=== PATIENT | female | born 1950 | race Caucasian/White ===

== ENCOUNTER 2016-05-02 20:03 | Observation (INO) ==
[2016-05-02 21:53] LABS: Hematocrit 36.9 % (35.3-44.9); Hemoglobin 11.9 g/dL (11.5-15.4); Lymphocytes # 1.4 K/mcL (0.6-4.6); Mean Corpuscular HGB Conc 32.2 g/dL (31.6-35.5); Mean Corpuscular Hemoglobin 29.2 pg (28.0-33.3); Mean Corpuscular Volume 90.4 fL (83.0-100.0); Mean Platelet Volume 10.7 fL (9.4-12.4); Platelet Count 110 K/mcL (140-400); Red Blood Count 4.08 M/mcL (3.82-4.97); Red Cell Distribution Width 14.8 % (11.5-14.5)
[2016-05-02 21:58] LABS: INR 1.1; Prothrombin Time 11.5 Seconds (9.4-12.1)
[2016-05-02 22:01] LABS: Activated Partial Thrombo Time 37.3 Seconds (26.0-36.0)
[2016-05-02 22:06] LABS: BUN/Creatinine Ratio 14 (6-26); Blood Urea Nitrogen 12 mg/dL (7-20); Calcium 9.4 mg/dL (8.6-10.8); Carbon Dioxide 23 mEq/L (19-29); Chloride 105 mEq/L (98-109); Glucose 155 mg/dL (70-99); Osmolality,Calculated 291 (280-300); Potassium 4.3 mEq/L (3.5-4.5); Sodium 139 mEq/L (136-145); eGFR For African Americans > 60 (> 60); eGFR For Non-African Americans > 60 (> 60)
[2016-05-02 22:13] LABS: Monocytes # 0.5 K/mcL (0.0-1.3); Neutrophils # 2.8 K/mcL (1.6-8.9); Platelet Estimate Slight Decrease (Normal); Reactive Lymphocytes Present (Not Present)
--- NOTE | 2016-05-02 22:28 | Emergency Department Note ---
Disposition Clinical Impression: Angina effort, Abnormal stress test Disposition: Admitted As Inpatient Condition: Good General Adult HPI - General Chief complaint: ED Chest Pain Stated complaint: CP Time Seen by Provider: 05/02/16 22:21 Source: patient - History of Present Illness Pain Scale: 1 - Related Data Allergies Allergy/AdvReac Type Severity Reaction Status Date / Time No Known Allergies Allergy Verified 05/02/16 20:38 Past Medical History - Past Medical History Medical history: Reports: diabetes, hyperlipidemia, hypertension, myocardial infarction - Social History Smoking Status: Never smoker Alcohol use: Reports: none Drug use: Reports: none Physical Exam - General General appearance: alert, in no apparent distress Course Vital Signs Temperature 98.2 F 05/02/16 20:34 Pulse Rate 87 05/02/16 20:34 Respiratory Rate 20 05/02/16 20:34 Blood Pressure 150/78 05/02/16 20:34 O2 Sat by Pulse Oximetry 96 05/02/16 20:34 Temperature 97.4 F L 05/03/16 07:19 Pulse Rate 77 05/03/16 07:19 Respiratory Rate 14 05/03/16 07:19 Blood Pressure 142/78 05/03/16 07:19 O2 Sat by Pulse Oximetry 95 05/03/16 07:19 Oxygen Delivery Oxygen Delivery Room Air Medical Decision Making - Lab Data Result diagrams: 05/03/16 04:00 05/03/16 04:00 Lab Results 05/02/16 05/02/16 05/02/16 Range/Units 21:18 21:18 21:18 WBC 4.7 (4.3-11.1) K/mcL RBC 4.08 (3.82-4.97) M/mcL Hgb 11.9 (11.5-15.4) g/dL Hct 36.9 (35.3-44.9) % MCV 90.4 (83.0-100.0) fL MCH 29.2 (28.0-33.3) pg MCHC 32.2 (31.6-35.5) g/dL RDW 14.8 H (11.5-14.5) % Plt Count 110 L (140-400) K/mcL MPV 10.7 (9.4-12.4) fL Seg Neutrophils % 60.0 % Lymphocytes % 30.0 % Monocytes % 10.0 % Neutrophils # 2.8 (1.6-8.9) K/mcL Lymphocytes # 1.4 (0.6-4.6) K/mcL Monocytes # 0.5 (0.0-1.3) K/mcL Reactive Lymphocytes Present A (Not Present) Platelet Estimate Slight Decrease L (Normal) PT 11.5 (9.4-12.1) Seconds INR 1.1 APTT 37.3 H (26.0-36.0) Seconds Sodium 139 (136-145) mEq/L Potassium 4.3 (3.5-4.5) mEq/L Chloride 105 (98-109) mEq/L Carbon Dioxide 23 (19-29) mEq/L BUN 12 (7-20) mg/dL Creatinine 0.83 (0.57-1.11) mg/dL Est GFR ( Amer) > 60 (> 60) Est GFR (Non-Af Amer) > 60 (> 60) BUN/Creatinine Ratio 14 (6-26) Glucose 155 H (70-99) mg/dL Calculated Osmolality 291 (280-300) Calcium 9.4 (8.6-10.8) mg/dL Troponin I (0-0.03) ng/mL 05/02/16 Range/Units 21:18 WBC (4.3-11.1) K/mcL RBC (3.82-4.97) M/mcL Hgb (11.5-15.4) g/dL Hct (35.3-44.9) % MCV (83.0-100.0) fL MCH (28.0-33.3) pg MCHC (31.6-35.5) g/dL RDW (11.5-14.5) % Plt Count (140-400) K/mcL MPV (9.4-12.4) fL Seg Neutrophils % % Lymphocytes % % Monocytes % % Neutrophils # (1.6-8.9) K/mcL Lymphocytes # (0.6-4.6) K/mcL Monocytes # (0.0-1.3) K/mcL Reactive Lymphocytes (Not Present) Platelet Estimate (Normal) PT (9.4-12.1) Seconds INR APTT (26.0-36.0) Seconds Sodium (136-145) mEq/L Potassium (3.5-4.5) mEq/L Chloride (98-109) mEq/L Carbon Dioxide (19-29) mEq/L BUN (7-20) mg/dL Creatinine (0.57-1.11) mg/dL Est GFR ( Amer) (> 60) Est GFR (Non-Af Amer) (> 60) BUN/Creatinine Ratio (6-26) Glucose (70-99) mg/dL Calculated Osmolality (280-300) Calcium (8.6-10.8) mg/dL Troponin I 0.01 (0-0.03) ng/mL Attestation Statement - Attestation Attestation: I examined this patient and my medical decision-making was reviewed with the PLANNING AIDE/PA/Advanced Practice Nurse/Resident Physician. I agree with the documented findings, disposition and treatment plan as described except to the extent set forth below. Face to face time provided Patient presents at the recommendation of her primary care provider who stated she recently had an abnormal stress test and she should present to the emergency department for further evaluation and treatment. The patient appears in no acute distress. ECG reviewed by me
--- NOTE | 2016-05-02 22:53 | Emergency Department Note ---
Disposition Clinical Impression: Angina effort, Abnormal stress test Disposition: Admitted As Inpatient Condition: Good Referrals: No Florez DO [Primary Care Provider] - Forms: ED Satisfaction Letter Chest Pain HPI - General Chief Complaint: ED Chest Pain Stated Complaint: CP Time Seen by Provider: 05/02/16 22:21 Source: patient Mode of arrival: ambulatory Vital Signs Reviewed: Yes Nursing Notes Reviewed: Yes - History of Present Illness HPI Narrative: Patient is a 66-year-old female with past medical history of diabetes, hypertension, hypercholesterol, former smoker with previous history of remote reported DVT not currently treated with anticoagulation. Patient presents today for evaluation of chest pain and abnormal stress test. Patient has had progressive anginal symptoms over the last 2 months that were worked up as an outpatient with a stress test performed at [facility]. Patient was called today by her primary care physician and told to go to the ER as she had an abnormal stress test involving a moderate amount of her heart acting enough blood flow., Dictating her previous history she has had several episodes of pain in the center of her chest that feels like someone is "punching" her. This significant hard fast pressure last for several seconds and goes away. Patient is not in any current distress and chest pain is currently resolved. Symptoms are reproducible with exertion and associated shortness of breath. No associated nausea or radiation of pain. No fevers no chills no radiation to the back. Severity scale (1-10): 1 - Related Data Allergies Allergy/AdvReac Type Severity Reaction Status Date / Time No Known Allergies Allergy Verified 05/02/16 20:38 All systems ED: reviewed and negative except as stated. Constitutional: Denies: fever, chills Eyes: Denies: eye pain Cardiovascular: Reports: chest pain, palpitations, dyspnea on exertion Respiratory: Denies: cough, dyspnea Gastrointestinal: Denies: abdominal pain, nausea Genitourinary: Denies: urgency Musculoskeletal: Denies: back pain Neurological: Denies: headache Chest Pain PMH - Past Medical History Medical history: Reports: diabetes, hyperlipidemia, hypertension, myocardial infarction - Social History Smoking Status: Never smoker Alcohol use: Reports: none Drug use: Reports: none Physical Exam - General General appearance: alert, in no apparent distress - Head Head exam: atraumatic, normocephalic - Eye Eye exam: Present: normal appearance - ENT ENT exam: normal exam, normal oropharynx - Neck Neck exam: Present: normal inspection, full ROM - Chest Chest inspection: Present: normal inspection, symmetric chest wall rise - Respiratory Respiratory exam: Present: normal lung sounds bilaterally. Absent: respiratory distress, wheezes - Cardiovascular Cardiovascular exam: Present: regular rate, normal rhythm - Abdominal Exam Abdominal exam: Present: soft, Non-Tender - Extremities Exam Extremities exam: Present: normal inspection. Absent: tenderness, pedal edema - Back Exam Back exam: Present: normal inspection. Absent: tenderness - Neurological Exam Neurological exam: Present: alert, oriented X3 - Psychiatric Psychiatric exam: Present: normal affect, normal mood Course Course Narrative: Patient with negative troponin and chest x-ray. EKG abnormal as below. Records being requested. Patient will need admission for further evaluation. - Reevaluation(s) Reevaluation #1: Patient remains chest pain free at this time - Consultations Consultation #1: Discussed with hospitalist, Dr. Aleman, patient accepted for admission. Consultation #2: Discussed with cardiology, Dr. Renteria, no interventions or repeat imaging at this time. Will evaluate in a.m. Vital Signs Temperature 98.2 F 05/02/16 20:34 Pulse Rate 87 05/02/16 20:34 Respiratory Rate 20 05/02/16 20:34 Blood Pressure 150/78 05/02/16 20:34 O2 Sat by Pulse Oximetry 96 05/02/16 20:34 Temperature 98.2 F 05/02/16 20:34 Pulse Rate 87 05/02/16 20:34 Respiratory Rate 20 05/02/16 20:34 Blood Pressure 150/78 05/02/16 20:34 O2 Sat by Pulse Oximetry 96 05/02/16 20:34 Oxygen Delivery Oxygen Delivery Room Air Chest Pain - Lab Data Result diagrams: 05/02/16 21:18 05/02/16 21:18 Lab Results 05/02/16 05/02/16 05/02/16 Range/Units 21:18 21:18 21:18 WBC 4.7 (4.3-11.1) K/mcL RBC 4.08 (3.82-4.97) M/mcL Hgb 11.9 (11.5-15.4) g/dL Hct 36.9 (35.3-44.9) % MCV 90.4 (83.0-100.0) fL MCH 29.2 (28.0-33.3) pg MCHC 32.2 (31.6-35.5) g/dL RDW 14.8 H (11.5-14.5) % Plt Count 110 L (140-400) K/mcL MPV 10.7 (9.4-12.4) fL Seg Neutrophils % 60.0 % Lymphocytes % 30.0 % Monocytes % 10.0 % Neutrophils # 2.8 (1.6-8.9) K/mcL Lymphocytes # 1.4 (0.6-4.6) K/mcL Monocytes # 0.5 (0.0-1.3) K/mcL Reactive Lymphocytes Present A (Not Present) Platelet Estimate Slight Decrease L (Normal) PT 11.5 (9.4-12.1) Seconds INR 1.1 APTT 37.3 H (26.0-36.0) Seconds Sodium 139 (136-145) mEq/L Potassium 4.3 (3.5-4.5) mEq/L Chloride 105 (98-109) mEq/L Carbon Dioxide 23 (19-29) mEq/L BUN 12 (7-20) mg/dL Creatinine 0.83 (0.57-1.11) mg/dL Est GFR ( Amer) > 60 (> 60) Est GFR (Non-Af Amer) > 60 (> 60) BUN/Creatinine Ratio 14 (6-26) Glucose 155 H (70-99) mg/dL Calculated Osmolality 291 (280-300) Calcium 9.4 (8.6-10.8) mg/dL Troponin I (0-0.03) ng/mL 05/02/16 Range/Units 21:18 WBC (4.3-11.1) K/mcL RBC (3.82-4.97) M/mcL Hgb (11.5-15.4) g/dL Hct (35.3-44.9) % MCV (83.0-100.0) fL MCH (28.0-33.3) pg MCHC (31.6-35.5) g/dL RDW (11.5-14.5) % Plt Count (140-400) K/mcL MPV (9.4-12.4) fL Seg Neutrophils % % Lymphocytes % % Monocytes % % Neutrophils # (1.6-8.9) K/mcL Lymphocytes # (0.6-4.6) K/mcL Monocytes # (0.0-1.3) K/mcL Reactive Lymphocytes (Not Present) Platelet Estimate (Normal) PT (9.4-12.1) Seconds INR APTT (26.0-36.0) Seconds Sodium (136-145) mEq/L Potassium (3.5-4.5) mEq/L Chloride (98-109) mEq/L Carbon Dioxide (19-29) mEq/L BUN (7-20) mg/dL Creatinine (0.57-1.11) mg/dL Est GFR ( Amer) (> 60) Est GFR (Non-Af Amer) (> 60) BUN/Creatinine Ratio (6-26) Glucose (70-99) mg/dL Calculated Osmolality (280-300) Calcium (8.6-10.8) mg/dL Troponin I 0.01 (0-0.03) ng/mL
[2016-05-02] MEDS ORDERED: Aspirin 81 MG TAB.CHEW PO ONE (23:27)
[2016-05-02] MEDS ORDERED: 0.9 % Sodium Chloride 1,000 ML IVC SCH (23:45)
[2016-05-02] MEDS ORDERED: Ondansetron 4 MG/2 ML VIAL IVP PRN (23:46)
[2016-05-02] MEDS ORDERED: Acetaminophen 325 MG TABLET PO PRN (23:46)
[2016-05-02] MEDS ORDERED: *HR* Morphine 2 MG/ML SYRINGE IVP PRN (23:46)
[2016-05-02] MEDS ORDERED: Naloxone 0.4 MG/ML INJ IVP PRN (23:46)
--- NOTE | 2016-05-03 00:29 | Internal Med History&Physical ---
Date of Encounter: 05/03/16 Time of Encounter: 23:50 Assessment and Plan (1) Unstable angina Current visit: Yes Status: Acute We will treat a patient with aspirin, nitroglycerin as needed, start low-dose beta chica. Will monitor patient on telemetry. Trend troponin. Check lipid panel. Consult cardiology. Likely the patient will require cardiac catheterization and therefore is at high risk for morbidity and complications given the cardiovascular testing with IV contrast. We will start gentle IV fluid hydration. (2) Diabetes mellitus type 2, noninsulin dependent Current visit: Yes Status: Acute We will start insulin sliding scale. Check hemoglobin A1c. (3) Obstructive sleep apnea Current visit: Yes Status: Acute We will use CPAP. (4) DVT prophylaxis Current visit: Yes Status: Acute Encourage early ambulation. She does not require pharmacological prophylaxis due to poorly ambulatory status and short stay. Internal Medicine - H&P: HPI Chief complaint: Chest pain Admitted From: Emergency Dept Plans for Post Hospital Care: Home History of present illness: Ms. Vincent is a 66 year old female with past medical history significant for hypertension and type 2 diabetes, coronary artery disease status post [place] and obstructive sleep apnea who presented to the hospital as a transfer from [facility] for evaluation of chest pain. Patient reports that she has been having midsternal pressure-like 4/10 pain on and off for the last 3 months usually brought on by walking on flat ground and relieved with rest. She reports associated shortness of breath. 2 days ago he had an episode of severe sharp substernal chest pain that was graded as 10/10 and lasted a few seconds. She had a stress test done 5 days ago and was told that it was positive and directed to the hospital. Currently patient is chest pain-free and asymptomatic. Review of systems: Negative for headaches seizures, negative for depression and anxiety, positive for blurry vision, positive for skin rash secondary to psoriasis, positive for history of a blood clot in the lower remotely, negative for easy bruising and bleeding, positive for joint aches and pains, positive for peripheral neuropathy. the remainder of 10 point review of systems was negative. Family history positive for diabetes mellitus in both parents. Patient's mother also suffered with CVA. Social history the patient is retired, has a sedentary lifestyle. She denies tobacco alcohol and drug use. Past Med Surg Social Fam HX - Past Medical History Medical history: diabetes, hyperlipidemia, hypertension, myocardial infarction - Social History Smoking Status: Never smoker Alcohol use: none Drug use: none - Family History Mother Living Status: Still Living Hx Family Cardiac Disorders: Yes (HTN) Hx Family Endocrine Disorder: Yes (DM) Hx Family Medical Disorders: Yes (TIA) Father Living Status: Age at : 85 Cause of : TIA Hx Family Cardiac Disorders: Yes (HTN) Hx Family Endocrine Disorder: Yes (DM) Internal Medicine - H&P: Meds Allergies No Known Allergies Allergy (Verified 05/02/16 20:38) All Systems PM: A 10-system review of systems was performed and is negative for pertinent findings except as documented above in the HPI. - Constitutional Vitals: Temp Pulse Resp BP Pulse Ox 98.2 F 83 18 115/67 98 05/02/16 20:34 05/02/16 23:44 05/02/16 23:53 05/02/16 23:53 05/02/16 23:44 General appearance: Present: A&O X 3 - Eye Eye exam: Present: PERRL, conjuntiva pink, sclera anicteric Pupils: Present: PERRL - Neck Neck exam general surgery: Present: supple, trachea midline. Absent: lymphadenopathy - Respiratory Respiratory exam: Present: CTAB. Absent: accessory muscle use, rales, rhonchi, wheezes - Cardiovascular Cardiovascular exam: Present: RRR, +S1, +S2, systolic murmur. Absent: diastolic murmur, gallop, rubs - GI/Abdominal GI/Abdominal exam: Present: normal bowel sounds, soft, no peritoneal signs. Absent: distended, tenderness - Extremities Exam Extremities exam: Present: pedal edema, warm, radial pulses palpable and symetrical. Absent: calf tenderness, cyanotic Additional comments: trace pedal edema - Neurological Exam Neurological exam: Present: CN II-XII intact, oriented X3, no focal deficits. Absent: pronater drift, facial droop, speech deficit - Skin Skin exam: Present: dry, intact Internal Med - H&P Results - Labs CBC & Chem 7: 05/02/16 21:18 05/02/16 21:18 - EKG Data EKG comments: 05/03/16 03:02 EKG reveals normal sinus rhythm 84 bpm left axis deviation Q waves in 3 and aVF consistent with old inferior wall W[place] and poor R-wave progression. No acute ST or T-wave changes. The EKG is unchanged when compared to an EKG from 2010. - Impressions Per chart review nuclear stress test performed on 04/27/2016 reveals evidence of moderate size area of mild fixed inferolateral wall defect. Differential include attenuation artifact versus previous non-transmural W[place] versus severe resting ischemia. Echocardiogram performed on 04/27/2016 reveals left ventricle normal size and function. No diastolic dysfunction.
[2016-05-03] MEDS ORDERED: Nitroglycerin 0.4 MG TAB.SUBL SL PRN (03:17)
[2016-05-03] MEDS ORDERED: Dextrose Gel 15 GM PO PRN ×2 (03:19)
[2016-05-03] MEDS ORDERED: D5% in Water 1,000 ML IV PRN (03:19)
[2016-05-03] MEDS ORDERED: *HR* Dextrose 50 % in Water (Syg) 50 ML SYRINGE IVP PRN (03:19)
[2016-05-03 04:42] LABS: Hematocrit 33.4 % (35.3-44.9); Hemoglobin 10.9 g/dL (11.5-15.4); Immature Platelets 4.7 % (1.1-6.1); Mean Corpuscular HGB Conc 32.6 g/dL (31.6-35.5); Mean Corpuscular Hemoglobin 29.5 pg (28.0-33.3); Mean Corpuscular Volume 90.5 fL (83.0-100.0); Mean Platelet Volume 10.7 fL (9.4-12.4); Red Blood Count 3.69 M/mcL (3.82-4.97); Red Cell Distribution Width 14.9 % (11.5-14.5)
[2016-05-03 04:46] LABS: Platelet Count 84 K/mcL (140-400)
[2016-05-03 05:08] LABS: BUN/Creatinine Ratio 21 (6-26); Blood Urea Nitrogen 16 mg/dL (7-20); Calcium 8.9 mg/dL (8.6-10.8); Carbon Dioxide 23 mEq/L (19-29); Chloride 107 mEq/L (98-109); Chol/HDL Ratio 4.7 (0-4.9); Cholesterol 164 mg/dL (< 200); Glucose 124 mg/dL (70-99); HDL Cholesterol 35 mg/dL (40-59); LDL Cholesterol,Calculated 92 mg/dL (0-99); Magnesium 1.9 mg/dL (1.6-2.6); Osmolality,Calculated 293 (280-300); Potassium 4.2 mEq/L (3.5-4.5); Sodium 140 mEq/L (136-145); Triglycerides 185 mg/dL (< 150); eGFR For African Americans > 60 (> 60); eGFR For Non-African Americans > 60 (> 60)
[2016-05-03 05:38] LABS: Eosinophils # 0.1 K/mcL (0.0-0.6); Lymphocytes # 1.1 K/mcL (0.6-4.6); Monocytes # 0.3 K/mcL (0.0-1.3); Neutrophils # 1.8 K/mcL (1.6-8.9); Platelet Estimate Decreased (Normal); Reactive Lymphocytes Present (Not Present); Smudge Cells Present (Not Present)
[2016-05-03 05:40] LABS: Hemoglobin A1C 6.5 %
[2016-05-03] MEDS: Insulin LISPRO 300 UNITS/3 ML VIAL SQ SCH ×2 (05:48→11:09)
[2016-05-03] MEDS ORDERED: Aspirin 81 MG TAB.CHEW PO SCH (09:00)
--- NOTE | 2016-05-03 10:26 | Cardiology Consult Note ---
<Jagjit Dumont R - Last Filed: 05/03/16 11:35> Date of Encounter: 05/03/16 Time of Encounter: 10:20 Assessment and Plan (1) Abnormal stress test Current Visit: Yes Status: Acute Stress test reviewed from [facility] [place] 04/27/16. The report gives conflicting information. The conclusion portion states it shows moderate sized area of mild fixed inferolateral wall defect at rest, likely representing prior MA or artifact, but in details it states rest images had normal uptake and that stress images show mild decreased perfusion in inferolateral segments, which could represent ischemia. Unclear results. Gated EF 81%. Echo reviewed with preserved EF, no significant abnormalities. Given chest pain and abnormal stress test recommend [facility]. R/B/A discussed. Pt agrees. Complicated by thrombocytopenia--platelet count 84 this AM. Will recheck. Was 110 on admission. Pt reports this is an ongoing issue and she follows with GI at [facility] [place]. Reports she has been told it is related to her fatty liver. If PCI needed, will recommend BMS. Risk factors for CAD include HTN, HLD, DM. Reportedly has been told she had a prior MA. Reports having a C >20 years without intervention. Continue ASA and BB. Add statin. (2) Chest pain Current Visit: Yes Status: Acute Troponins negative x 3. In setting of recent abnormal stress test as above. Echo reviewed from [facility] [place] with preserved EF, no significant abnormalities. Recommend [facility] to further evaluate. R/B/A discussed. Pt agrees. Qualifiers: Chest pain type: unspecified Qualified Code(s): R07.9 - Chest pain, unspecified (3) Thrombocytopenia Current Visit: Yes Status: Chronic Pt reports following with GI at [facility] [place]. Reports GI feels it is related to fatty liver and enlarged spleen. Platelet count 110 on admission, 84 this AM. Will recheck. BMS if PCI necessary. Discussion w patient/family: The assessment and plan as outlined above was discussed with the patient and/or family members who expressed understanding and agreement. All questions were answered. Thank you for involving us in the care of your patient. Please call with any questions. I will discuss all the above with Dr. Hickman and make changes as necessary. History of Present Illness Consult date: 05/03/16 Requesting physician: Ace Haq Consult reason: abnormal stress test Chief complaint: chest pain History of present illness: Ms. Vincent is a 66 year old female with PMH of HTN, Type 2 DM, reportedly told in the past she had an MA, LHC >20 years ago without intervention, fatty liver, thrombocytopenia, and obstructive sleep apnea who presented to the hospital after being instructed by her PCP to come in for abnormal stress test. She reports she has had chest pain for a long time, described as intermittent, midsternal, pressure/sharp in nature. There is no radiation. She reports it is with both rest and exertion, but she does notice sometimes it is worsened with exertion. She reports significant dyspnea on exertion. Stress test reviewed from [facility] [place] 04/27/16. The report gives conflicting information. The conclusion portion states it shows moderate sized area of mild fixed inferolateral wall defect at rest, likely representing prior MA or artifact, but in details it states rest images had normal uptake and that stress images show mild decreased perfusion in inferolateral segments, which could represent ischemia. Unclear results. Gated EF 81%. Echo reviewed with preserved EF, no significant abnormalities. Past Med Surg Social Fam HX - Past Medical History Medical history: diabetes, hyperlipidemia, hypertension, liver disease, myocardial infarction Psychiatric history: no psych history - Past Surgical History Surgical History: hysterectomy - Social History Smoking Status: Never smoker Alcohol use: none Drug use: none - Family History Mother Living Status: Still Living Hx Family Cardiac Disorders: Yes (HTN) Hx Family Endocrine Disorder: Yes (DM) Hx Family Medical Disorders: Yes (TIA) Father Living Status: Age at : 85 Cause of : TIA Hx Family Cardiac Disorders: Yes (HTN) Hx Family Endocrine Disorder: Yes (DM) Medications and Allergies Gabapentin [Neurontin] 300 mg PO BID 05/03/16 [History] Lisinopril [Zestril] 5 mg PO DAILY 05/03/16 [History] Metformin [Glucophage] 1,000 mg PO BID 05/03/16 [History] [employer]-3/Dha/Epa/Fish Oil [Fish Oil 1,000 mg Softgel] 1,000 mg PO DAILY 05/03/16 [History] Allergies No Known Allergies Allergy (Verified 05/02/16 20:38) All Systems Review: A 10-system review of systems was performed and is negative for pertinent findings except as documented above in the HPI. - Cardiovascular Cardiovascular: as per HPI, chest pain at rest, chest pain with exertion, dyspnea on exertion - Respiratory Respiratory: dyspnea Physical Examination Vital Signs, Last 4 Hours Temp Pulse Resp BP Pulse Ox 05/03/16 07:19 97.4 F L 77 14 142/78 95 Vital Signs Temp Pulse Resp BP Pulse Ox 05/03/16 07:19 97.4 F L 77 14 142/78 95 05/03/16 03:21 98.1 F 76 16 109/69 96 05/03/16 00:32 97.9 F 78 18 108/72 96 05/02/16 23:53 18 115/67 05/02/16 23:44 83 16 115/67 98 05/02/16 20:34 98.2 F 87 20 150/78 96 Intake and Output 05/02/16 05/03/16 05/03/16 23:59 07:59 15:59 Intake Total 1000 / 1000 Balance 1000 / 1000 Intake: IV Fluids 1000 / 1000 0.9 % Sodium Chloride 1, 1000 / 1000 000 ML @ 75 mls/hr IVC . [id number] JESSI Rx#: [id number] Other: Meal NPO # Voids 1 Weight 99.337 kg Blood Glucose* 124 General: Conversant, No Apparent Distress HEENT: Atraumatic, Normocephaly, Mucus Membranes Moist Neck: No JVD, Normal carotid pulses Cardiac: Reg Rate and Rhythm, Normal S1 and S2, No Murmur Lungs: Normal Breath Sounds, No Wheeze, Rales, Rhonchi Neuro: Alert and responsive, No focal deficits noted Abdomen: Soft, Non-Tender Skin: No rashes noted on visualized skin Musculoskeletal: No Chest Wall Tenderness Extremities: No Clubbing, No Cyanosis, No Edema, Normal Pulses Results 05/03/16 10:56 05/03/16 04:00 Lab Results 05/03/16 05/03/16 05/03/16 04:00 04:00 04:00 WBC 3.3 L Hgb 10.9 L Hct 33.4 L Plt Count 84 L Sodium 140 Potassium 4.2 Chloride 107 Carbon Dioxide 23 BUN 16 Creatinine 0.75 Glucose 124 H Calcium 8.9 Magnesium 1.9 Troponin I 0.00 05/03/16 09:01 WBC Hgb Hct Plt Count Sodium Potassium Chloride Carbon Dioxide BUN Creatinine Glucose Calcium Magnesium Troponin I 0.00 Short CBC 05/03/16 05/02/16 Range/Units 04:00 21:18 WBC 3.3 L 4.7 (4.3-11.1) K/mcL Hgb 10.9 L 11.9 (11.5-15.4) g/dL Hct 33.4 L 36.9 (35.3-44.9) % Plt Count 84 L 110 L (140-400) K/mcL Neutrophils # 1.8 2.8 (1.6-8.9) K/mcL BMP 05/03/16 05/02/16 Range/Units 04:00 21:18 Sodium 140 139 (136-145) mEq/L Potassium 4.2 4.3 (3.5-4.5) mEq/L Chloride 107 105 (98-109) mEq/L Carbon Dioxide 23 23 (19-29) mEq/L BUN 16 12 (7-20) mg/dL Creatinine 0.75 0.83 (0.57-1.11) mg/dL Glucose 124 H 155 H (70-99) mg/dL Calcium 8.9 9.4 (8.6-10.8) mg/dL Cardiac Enzymes 05/03/16 05/03/16 05/02/16 Range/Units 09:01 04:00 21:18 Troponin I 0.00 0.00 0.01 (0-0.03) ng/mL Impressions Chest X-Ray 05/02/16 20:39 IMPRESSION: No evidence of acute cardiopulmonary disease. D/ / Fredi Villar MD / Fredi Villar MD Interpreting Provider: Fredi Villar MD Active Medications Acetaminophen (Tylenol) 650 mg PO Q6HR PRN PRN Reason: Mild Pain (1-3) Stop: 11/01/16 23:47 Aspirin (Aspirin) 81 mg PO DAILY JESSI Stop: 11/02/16 09:01 Last Admin: 05/03/16 08:20 Dose: 81 mg Dextrose/Water (Dextrose 50% (Syg)) 25 ml IVP AD PRN PRN Reason: Hypoglycemia Stop: 11/02/16 03:20 Glucagon (Glucagen) 1 mg IM ONCE PRN PRN Reason: Hypoglycemia Stop: 11/02/16 03:20 Glucose (Gluctose) 15 gm PO ONCE PRN PRN Reason: Hypoglycemia Stop: 11/02/16 03:20 Glucose (Gluctose) 30 gm PO ONCE PRN PRN Reason: Hypoglycemia Stop: 11/02/16 03:20 Sodium Chloride (0.9 % Sodium Chloride) 1,000 mls @ 75 mls/hr IVC .[id number] [facility] Stop: 05/03/16 13:04 Last Infusion: 05/03/16 10:19 Dose: Infused Dextrose (Dextrose 5%) 1,000 mls @ 100 mls/hr IV CONT PRN PRN Reason: HYPOGLYCEMIA Stop: 11/02/16 03:20 Insulin Human Lispro (Humalog) 0 units SQ Q6HR JESSI PRN Reason: Protocol Stop: 11/02/16 06:01 Last Admin: 05/03/16 05:48 Dose: Not Given Metoprolol Tartrate (Lopressor) 12.5 mg PO BID [facility] Stop: 11/02/16 09:01 Last Admin: 05/03/16 08:20 Dose: 12.5 mg Morphine Sulfate (Morphine Sulfate) 2 mg IVP Q4HR PRN PRN Reason: Severe Pain (7-10) Stop: 11/01/16 23:47 Naloxone HCl (Narcan) 0.4 mg IVP Q2MIN PRN PRN Reason: Opioid Reversal Stop: 11/01/16 23:47 Nitroglycerin (Nitroglycerin) 0.4 mg SL Q5MIN PRN PRN Reason: Chest Pain Stop: 11/02/16 03:18 Ondansetron HCl (Zofran) 4 mg IVP Q8HR PRN PRN Reason: Nausea And Vomiting Stop: 11/01/16 23:47 - Imaging and Cardiology Chest Xray: report reviewed Stress Test: report reviewed Echo: report reviewed - EKG Interpretation EKG results cardiology: personally reviewed, other (12 hour tele AVG HR 72, SR, no significant pauses or arrhythmias.) Consult Discharge Plan - Plan Referrals: No Florez DO [Primary Care Provider] - 05/15/16 11:30 am <Ileana Hickman - Last Filed: 05/03/16 15:56> Assessment and Plan Discussion w patient/family: The assessment and plan as outlined above was discussed with the patient and/or family members who expressed understanding and agreement. All questions were answered. Thank you for involving us in the care of your patient. Please call with any questions. History of Present Illness History of present illness: Ms. Vincent is a 66 year old female All Systems Review: A 10-system review of systems was performed and is negative for pertinent findings except as documented above in the HPI. Physical Examination Vital Signs, Last 4 Hours Temp Pulse Resp BP Pulse Ox 05/03/16 15:24 98.6 F 70 14 115/68 96 Results 05/03/16 10:56 05/03/16 04:00 Lab Results 05/03/16 05/03/16 05/03/16 04:00 04:00 04:00 WBC 3.3 L Hgb 10.9 L Hct 33.4 L Plt Count 84 L Sodium 140 Potassium 4.2 Chloride 107 Carbon Dioxide 23 BUN 16 Creatinine 0.75 Glucose 124 H Calcium 8.9 Magnesium 1.9 Troponin I 0.00 05/03/16 05/03/16 09:01 10:56 WBC 2.6 L Hgb 11.1 L Hct 34.5 L Plt Count 73 L Sodium Potassium Chloride Carbon Dioxide BUN Creatinine Glucose Calcium Magnesium Troponin I 0.00 - Attending Attestation I examined this patient and my medical decision-making was reviewed with the FOOD STYLIST/PA/Advanced Practice Nurse/Resident Physician. I agree with the documented findings, disposition and treatment plan as described except to the extent set forth below. Ms. Vincent presented to the hospital by PCP for stress test results. I reviewed the stress test report in detail which is difficult to interpret, suggesting conflicting findings between the Impression and Summary of the report. Unfortunately, I do not believe we can make a plan of care solely based on the stress test report. The patient admits to having intermittent chest pains that are atypical and lack characteristics of ischemia. In addition to this, she has thrombocyotpenia, decreasing from 110 to 73 over the last 24h. I recommended to the patient that she needs further workup before committing her to the risks of a cardiac catheterization. She would like to follow up with Dr. Guo in the office. We will request the stress test images for his personal review. At this time, it is reasonable for the patient to continue aspirin. She is following up with her Workers Compensation Coordinator in 2 weeks. It is also reasonable to start her on a PPI since her symptoms may be suggestive of GERD. She can follow up in the outpatient setting for re-evaluation of symptoms. We will arrange her appointment in [place]. We are signing off. Please call with questions.
[2016-05-03 11:07] LABS: Hematocrit 34.5 % (35.3-44.9); Hemoglobin 11.1 g/dL (11.5-15.4); Mean Corpuscular HGB Conc 32.2 g/dL (31.6-35.5); Mean Corpuscular Hemoglobin 29.6 pg (28.0-33.3); Mean Platelet Volume 10.3 fL (9.4-12.4); Red Blood Count 3.75 M/mcL (3.82-4.97); Red Cell Distribution Width 14.7 % (11.5-14.5)
[2016-05-03 11:11] LABS: Platelet Count 73 K/mcL (140-400)
[2016-05-03 11:27] LABS: Lymphocytes # 0.9 K/mcL (0.6-4.6); Monocytes # 0.4 K/mcL (0.0-1.3); Neutrophils # 1.3 K/mcL (1.6-8.9)
[2016-05-03 11:28] LABS: Anisocytosis 1+ (Not Present); Macrocytosis Present (Not Present); Platelet Estimate Decreased (Normal)
[2016-05-03 15:28] VITALS: BP 115/68
--- NOTE | 2016-05-03 16:12 | Discharge Summary ---
Date of Encounter: 05/03/16 Time of Encounter: 09:00 - Discharge Diagnosis (1) Abnormal stress test Priority: Primary Status: Acute (2) Chest pain Priority: Primary Status: Acute Qualifiers: Chest pain type: unspecified Qualified Code(s): R07.9 - Chest pain, unspecified (3) DVT prophylaxis Priority: Secondary Status: Acute (4) Diabetes mellitus type 2, noninsulin dependent Priority: Secondary Status: Acute (5) Obstructive sleep apnea Priority: Secondary Status: Acute (6) Unstable angina Priority: Primary Status: Acute (7) Thrombocytopenia Priority: Secondary Status: Chronic - Discharge Medications Prescriptions: Nitroglycerin 0.4 mg SL Q5MIN PRN #20 tab.subl PRN Reason: Chest Pain Aspirin 81 mg PO DAILY #30 tab.chew Metoprolol [Lopressor] 12.5 mg PO BID #60 tablet Omeprazole [PriLOSEC] 40 mg PO DAILY@0630 #60 capsule. Home Medications: Aspirin 81 mg PO DAILY #30 tab.chew 05/03/16 [Rx] Atorvastatin [Lipitor] 20 mg PO HS #60 tablet 05/03/16 [Rx] Gabapentin [Neurontin] 300 mg PO BID 05/03/16 [History] Lisinopril [Zestril] 5 mg PO DAILY 05/03/16 [History] Metformin [Glucophage] 1,000 mg PO BID 05/03/16 [History] Metoprolol [Lopressor] 12.5 mg PO BID #60 tablet 05/03/16 [Rx] Nitroglycerin 0.4 mg SL Q5MIN PRN #20 tab.subl 05/03/16 [Rx] [employer]-3/Dha/Epa/Fish Oil [Fish Oil 1,000 mg Softgel] 1,000 mg PO DAILY 05/03/16 [History] Omeprazole [PriLOSEC] 40 mg PO DAILY@0630 #60 capsule. 05/03/16 [Rx] Allergies/Adverse Reactions: Allergies No Known Allergies Allergy (Verified 05/02/16 20:38) Procedures/tests Complete & Pending: Procedures Performed prior 72 hours Category Date Time Status ECG 12 lead ECG [ECG] AM 0600 Y 05/03/16 06:00 Ordered Date of admission: 05/02/16 23:28 Primary care physician: No Florez DO Consults: 05/02/16 23:50 Consult to Physician [CONS] Routine Consulting Provider: Roberto Renteria Reason for Consult: UA Time Notified: 22:00 Call Completed: Yes Discharging clinician: Shavon Mancini Anticipated date of discharge: 05/03/16 - Patient Status Disposition: Home, Self-Care Condition: Good Functional capacity at discharge: independent ambulation Overall status at discharge: patient is back to baseline - Discharge Instructions Follow Up With: No Florez DO [Primary Care Provider] - 05/15/16 11:30 am - Diet and Activity Activity: increase activity as tolerated Diet: diabetic diet Interval History: Ms. Vincent is a 66 year old female with past medical history significant for hypertension and type 2 diabetes, coronary artery disease status post [place] and obstructive sleep apnea who presented to the hospital as a transfer from [facility] for evaluation of chest pain. Patient reports that she has been having midsternal pressure-like 4/10 pain on and off for the last 3 months usually brought on by walking on flat ground and relieved with rest. She reports associated shortness of breath. 2 days ago he had an episode of severe sharp substernal chest pain that was graded as 10/10 and lasted a few seconds. She had a stress test done 5 days ago and was told that it was positive and directed to the hospital. Currently patient is chest pain-free and asymptomatic. Hospital course: Ms. Vincent is a 66 year old female admitted for chest pain and abnormal stress test result. Patient was placed on cardiac monitoring, cardiology consult was called and saw patient. At the beginning cardiology plan for cardiac catheterization, however, it is on hold because of thrombocytopenia. Patient has 3 sets of troponin negative. Will give patient medical treatment with aspirin, beta chica, statin. Patient's chest pains last only several second, also suspected GERD, we will try a PPI treatment for 4 weeks. Patient was discharged home under follow-up with cardiology as outpatient. I saw and examined the patient. She is awake alert oriented 3. No chest pain or SOB. Vital signs stable. Will discharge patient home with aspirin, beta chica, statin, and omeprazole. Patient will follow-up with PCP and cardiology as outpatient. - Time Spent with Patient Total time spent providing and/or coordinating discharge services: 40 minutes Greater than 30 minutes - Constitutional Vitals: Temp Pulse Resp BP Pulse Ox 98.6 F 70 14 115/68 96 05/03/16 15:24 05/03/16 15:24 05/03/16 15:24 05/03/16 15:24 05/03/16 15:24 General appearance: Present: A&O X 3 - Head Head exam: Present: atraumatic, normocephalic - Eye Eye exam: Present: PERRL, conjuntiva pink, sclera anicteric Pupils: Present: PERRL - Neck Neck exam general surgery: Present: supple, trachea midline. Absent: lymphadenopathy - Respiratory Respiratory exam: Present: CTAB. Absent: accessory muscle use, rales, rhonchi, wheezes - Cardiovascular Cardiovascular exam: Present: RRR, +S1, +S2. Absent: diastolic murmur, gallop, rubs, systolic murmur - GI/Abdominal GI/Abdominal exam: Present: normal bowel sounds, soft, no peritoneal signs. Absent: distended, tenderness - Extremities Exam Extremities exam: Present: warm, radial pulses palpable and symetrical. Absent : calf tenderness, cyanotic, pedal edema - Neurological Exam Neurological exam: Present: CN II-XII intact, oriented X3, no focal deficits. Absent: pronater drift, facial droop, speech deficit - Skin Skin exam: Present: dry, intact
--- NOTE | 2016-05-04 19:37 | Electrocardiograph Report ---
[address] [address] Test Date: 2016-05-02 Pat Name: Dina Vincent Department: 102 Room: 3B38 Gender: F Supervisor Grinding: : 1950 Requested By: Ace Rodriguez Order Number: [id number] Reading MD: Aleks Lanza Measurements Intervals [place] Rate: 84 P: 33 RI: 190 QRS: -32 QRSD: 98 T: 30 QT: 372 QTc: 413 Interpretive Statements SINUS RHYTHM MINIMAL VOLTAGE CRITERIA FOR LVH Electronically Signed On 05-04-2016 19:35:52 EST by Aleks Lanza
== END 2016-05-03 16:55 | disposition home or self-care (01) ==
LOC: 3BNU 20:03 → EMEROO 20:03 → SUATTDRO 23:28 → 3BNU 05-03 00:23
PROVIDERS: ADMIT Internal Medicine; ATTEND Internal Medicine

== ENCOUNTER 2018-08-21 18:36 | Observation (INO) ==
--- NOTE | 2018-08-21 20:10 | Emergency Department Note ---
Disposition Clinical Impression: Thrombocytopenia Cirrhosis Qualifiers: Hepatic cirrhosis type: unspecified hepatic cirrhosis Ascites presence: without ascites Qualified Code(s): K74.60 - Unspecified cirrhosis of liver Disposition: Admitted As Inpatient Referrals: Vannessa Villafana DO [Partnered Physician] - Forms: ED Satisfaction Letter Time of Disposition: 21:35 General Adult HPI - General Chief complaint: ED Recheck/Abnormal Lab/Rx Stated complaint: abnormal labs Time Seen by Provider: 08/21/18 19:01 Source: patient Mode of arrival: ambulatory Limitations: no limitations Nursing Notes Reviewed: Yes Vital Signs Reviewed: Yes - History of Present Illness HPI Narrative: 68 yo female with history of cirrhosis presents to the emergency department a fter receiving an abnormal lab result. 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 Patient does not have any symptoms at this time and has not had any recent trauma to her head, neck, abdomen, or extremities. Patient has not noticed any increased bleeding, blood in her urine or stools. She has no complaints at this time. Pain Scale: 0 - Related Data Home Medications Medication Instructions Recorded Confirmed metFORMIN [Glucophage] 1,000 mg PO BID 05/03/16 10/17/16 Lisinopril [Zestril] 10 mg PO DAILY PRN 08/30/16 10/17/16 Previous Rx's Medication Instructions Recorded Aspirin 81 mg PO DAILY #30 tab.chew 05/03/16 Sulfamethoxazole/Trimeth DS 1 each PO BID #20 tablet 10/17/16 [Bactrim DS] Allergies Allergy/AdvReac Type Severity Reaction Status Date / Time No Known Allergies Allergy Verified 10/17/16 14:07 All systems ED: reviewed and negative except as stated. Review of Systems: As Per HPI Constitutional: Denies: fever, chills, weakness Cardiovascular: Denies: chest pain, palpitations, dyspnea on exertion Respiratory: Denies: cough, dyspnea, wheezes Gastrointestinal: Denies: abdominal pain, nausea, vomiting Genitourinary: Denies: dysuria, hematuria Musculoskeletal: Denies: back pain, neck pain Integumentary: Denies: rash Neurological: Denies: headache Endocrine: Reports: fatigue Hematological/Lymphatic: Denies: easy bleeding, easy bruising Past Medical History - Past Medical History Attestation: Yes The following information was validated with the patient. Source: patient Medical history: Reports: diabetes, hyperlipidemia, hypertension, liver disease Surgical history: Reports: angioplasty/stent, hysterectomy Psychiatric history: Reports: no psych history - Social History Smoking Status: Never smoker Smokeless Tobacco Status: No Alcohol use: Reports: none Drug use: Reports: none Physical Exam - General Limitations: no limitations General appearance: alert, in no apparent distress - Head Head exam: atraumatic, normocephalic - Eye Eye exam: Present: normal appearance, PERRL, EOMI - ENT ENT exam: normal exam, normal oropharynx - Neck Neck exam: Present: normal inspection. Absent: tenderness, lymphadenopathy - Chest Chest inspection: Present: normal inspection. Absent: tenderness - Respiratory Respiratory exam: Present: normal lung sounds bilaterally. Absent: wheezes - Cardiovascular Cardiovascular exam: Present: regular rate, normal rhythm - Abdominal Exam Abdominal exam: Present: soft, Non-Tender. Absent: distention, guarding, rebound, rigidity - Extremities Exam Extremities exam: Present: normal inspection. Absent: tenderness, pedal edema - Neurological Exam Neurological exam: Present: alert, oriented X3 - Psychiatric Psychiatric exam: Present: normal affect, normal mood - Skin Skin exam: Present: warm, dry, intact Course Vital Signs Temperature 97.7 F 08/21/18 18:38 Pulse Rate 90 08/21/18 18:38 Respiratory Rate 18 08/21/18 18:38 Blood Pressure 152/77 08/21/18 18:38 O2 Sat by Pulse Oximetry 98 08/21/18 18:38 Temperature 97.7 F 08/21/18 18:38 Pulse Rate 81 08/21/18 21:04 Respiratory Rate 16 08/21/18 21:04 Blood Pressure 117/68 08/21/18 21:04 O2 Sat by Pulse Oximetry 96 08/21/18 21:04 Oxygen Delivery Oxygen Delivery Room Air Medical Decision Making - MDM Narrative Medical decision making narrative: Patient reports with an abnormal outpatient lab, labs will be repeated and we will include type and screen in case the patient needs transfused. 2100 - patient's platelets are 9, all other lab work is at the patient's baseline. We will page hematology for their recommendations on this patient and then disposition is likely admission to hospitalist for further monitoring and other workup. 2129 - spoke with hematology and they suggested giving the patient 1 unit of platelets and admission to the hospital for further monitoring and to be seen by them tomorrow. They say they will also continue to see her as an outpatient. Patient has been accepted by the hospitalist at this time. - Medical Records Medical records reviewed: Yes I reviewed the patient's medical records. - Lab Data Lab results reviewed: Yes I reviewed the patient's lab results. Result diagrams: 08/21/18 19:02 08/21/18 19:02 Lab Results 08/21/18 08/21/18 08/21/18 Range/Units 19:02 19:02 19:54 WBC 3.0 L (4.3-11.1) K/mcL RBC 3.78 L (3.82-4.97) M/mcL Hgb 10.7 L (11.5-15.4) g/dL Hct 33.8 L (35.3-44.9) % MCV 89.4 (83.0-100.0) fL MCH 28.3 (28.0-33.3) pg MCHC 31.7 (31.6-35.5) g/dL RDW 15.9 H (11.5-14.5) % Plt Count 9 L* (140-400) K/mcL MPV TNP Seg Neutrophils % 60.0 % Band Neutrophils % 6.0 H (0-4) % Lymphocytes % 20.0 % Monocytes % 14.0 % Neutrophils # 2.0 (1.6-8.9) K/mcL Lymphocytes # 0.6 (0.6-4.6) K/mcL Monocytes # 0.4 (0.0-1.3) K/mcL Platelet Estimate Marked Decrease L (Normal) Immature Plt Fraction 19.2 H (1.1-6.1) % Sodium 139 (136-145) mEq/L Potassium 4.0 (3.5-5.1) mEq/L Chloride 106 (98-107) mEq/L Carbon Dioxide 27 (23-29) mEq/L BUN 14 (8-23) mg/dL Creatinine 0.78 (0.60-1.20) mg/dL Est GFR ( Amer) > 60 (> 60) Est GFR (Non-Af Amer) > 60 (> 60) BUN/Creatinine Ratio 18 (6-26) Glucose 196 H (70-105) mg/dL Calculated Osmolality 294 (280-300) Calcium 9.3 (8.6-10.3) mg/dL Blood Type O POSITIVE Attestation Statement - Attestation Attestation: I, Prabhakar Carrion DO, examined this patient [id number] and my medical decision-making was reviewed with Laura Herrera DO, Resident Physician. I agree with the documented findings, disposition and treatment plan as described except to the extent set forth below. I personally supervised and was present for the espinal/critical portions of the procedures completed by the resident documented below. Please see my progress notes for details.
[2018-08-21 20:25] LABS: Hematocrit 33.8 % (35.3-44.9); Hemoglobin 10.7 g/dL (11.5-15.4); Immature Platelets 19.2 % (1.1-6.1); Mean Corpuscular HGB Conc 31.7 g/dL (31.6-35.5); Mean Corpuscular Hemoglobin 28.3 pg (28.0-33.3); Mean Corpuscular Volume 89.4 fL (83.0-100.0); Red Blood Count 3.78 M/mcL (3.82-4.97); Red Cell Distribution Width 15.9 % (11.5-14.5)
[2018-08-21 20:30] LABS: BUN/Creatinine Ratio 18 (6-26); Blood Urea Nitrogen 14 mg/dL (8-23); Calcium 9.3 mg/dL (8.6-10.3); Carbon Dioxide 27 mEq/L (23-29); Chloride 106 mEq/L (98-107); Glucose 196 mg/dL (70-105); Osmolality,Calculated 294 (280-300); Sodium 139 mEq/L (136-145); eGFR For African Americans > 60 (> 60); eGFR For Non-African Americans > 60 (> 60)
[2018-08-21 20:32] LABS: Platelet Count 9 K/mcL (140-400)
--- NOTE | 2018-08-21 20:41 | Emergency Department Note ---
Disposition Clinical Impression: Thrombocytopenia Cirrhosis Qualifiers: Hepatic cirrhosis type: unspecified hepatic cirrhosis Ascites presence: without ascites Qualified Code(s): K74.60 - Unspecified cirrhosis of liver Disposition: Admitted As Inpatient Time of Disposition: 21:00 General Adult HPI - General Chief complaint: ED Recheck/Abnormal Lab/Rx Stated complaint: abnormal labs Time Seen by Provider: 08/21/18 19:01 Source: patient Mode of arrival: ambulatory Limitations: no limitations - History of Present Illness Pain Scale: 0 - Related Data Home Medications Medication Instructions Recorded Confirmed metFORMIN [Glucophage] 1,000 mg PO BID 05/03/16 08/21/18 Lisinopril [Zestril] 10 mg PO DAILY PRN 08/30/16 08/21/18 Previous Rx's Medication Instructions Recorded Aspirin 81 mg PO DAILY #30 tab.chew 05/03/16 Sulfamethoxazole/Trimeth DS 1 each PO BID #20 tablet 10/17/16 [Bactrim DS] Allergies Allergy/AdvReac Type Severity Reaction Status Date / Time No Known Allergies Allergy Verified 10/17/16 14:07 Constitutional: Denies: fever, chills, weakness Cardiovascular: Denies: chest pain, palpitations, dyspnea on exertion Respiratory: Denies: cough, dyspnea, wheezes Gastrointestinal: Denies: abdominal pain, nausea, vomiting Genitourinary: Denies: dysuria, hematuria Musculoskeletal: Denies: back pain, neck pain Integumentary: Denies: rash Neurological: Denies: headache Endocrine: Reports: fatigue Hematological/Lymphatic: Denies: easy bleeding, easy bruising Past Medical History - Past Medical History Medical history: Reports: diabetes, hyperlipidemia, hypertension, liver disease Surgical history: Reports: angioplasty/stent, hysterectomy Psychiatric history: Reports: no psych history - Social History Smoking Status: Never smoker Smokeless Tobacco Status: No Alcohol use: Reports: none Drug use: Reports: none Physical Exam - General Limitations: no limitations General appearance: alert, in no apparent distress Course Vital Signs Temperature 97.7 F 08/21/18 18:38 Pulse Rate 90 08/21/18 18:38 Respiratory Rate 18 08/21/18 18:38 Blood Pressure 152/77 08/21/18 18:38 O2 Sat by Pulse Oximetry 98 08/21/18 18:38 Temperature 98.2 F 08/22/18 08:37 Pulse Rate 76 08/22/18 08:37 Respiratory Rate 16 08/22/18 08:37 Blood Pressure 146/76 08/22/18 08:37 O2 Sat by Pulse Oximetry 96 08/22/18 08:37 Oxygen Delivery Oxygen Delivery Room Air Medical Decision Making - Lab Data Result diagrams: 08/22/18 05:20 08/22/18 05:20 Lab Results 08/21/18 08/21/18 08/21/18 Range/Units 19:02 19:02 19:54 WBC 3.0 L (4.3-11.1) K/mcL RBC 3.78 L (3.82-4.97) M/mcL Hgb 10.7 L (11.5-15.4) g/dL Hct 33.8 L (35.3-44.9) % MCV 89.4 (83.0-100.0) fL MCH 28.3 (28.0-33.3) pg MCHC 31.7 (31.6-35.5) g/dL RDW 15.9 H (11.5-14.5) % Plt Count 9 L* (140-400) K/mcL MPV TNP Seg Neutrophils % 60.0 % Band Neutrophils % 6.0 H (0-4) % Lymphocytes % 20.0 % Monocytes % 14.0 % Neutrophils # 2.0 (1.6-8.9) K/mcL Lymphocytes # 0.6 (0.6-4.6) K/mcL Monocytes # 0.4 (0.0-1.3) K/mcL Platelet Estimate Marked Decrease L (Normal) Immature Plt Fraction 19.2 H (1.1-6.1) % Sodium 139 (136-145) mEq/L Potassium 4.0 (3.5-5.1) mEq/L Chloride 106 (98-107) mEq/L Carbon Dioxide 27 (23-29) mEq/L BUN 14 (8-23) mg/dL Creatinine 0.78 (0.60-1.20) mg/dL Est GFR ( Amer) > 60 (> 60) Est GFR (Non-Af Amer) > 60 (> 60) BUN/Creatinine Ratio 18 (6-26) Glucose 196 H (70-105) mg/dL Calculated Osmolality 294 (280-300) Calcium 9.3 (8.6-10.3) mg/dL Blood Type O POSITIVE Antibody Screen NEGATIVE Attestation Statement - Attestation Attestation: I, Prabhakar Carrion DO, examined this patient [id number] and my medical decision-making was reviewed with Laura Herrera DO, Resident Physician. I ag ree with the documented findings, disposition and treatment plan as described except to the extent set forth below. I personally supervised and was present for the espinal/critical portions of the procedures completed by the resident documented below. Please see my progress notes for details. 68-year-old female presents emergency room with lab abnormality. Patient was seen and evaluated by her primary care provider. Check blood counts drawn at that time that showed a platelet count of 8. Patient denies any chest pain or shortness of breath. She has not had any nausea vomiting or diarrhea. No fevers no chills. She has not fallen or injured herself. She has no rashes lesions of petechial-like presentation this time. Patient is otherwise resting comfortably in the bed in no specific distress. Vital signs been reviewed and are stable. Patient will repeat labs drawn here type and screen collected. If the patient's platelet count is at low will discuss with hematology recommendations for possible platelet transfusion. Patient is otherwise in no distress. Lungs are clear. Heart is regular. Abdomen is soft. No guarding no rigidity no peritoneal symptoms noted at this time. Patient is otherwise clinically stable. See detailed documentation of the physical exam, medical intervention, medical decision-making disposition the resident physician's note. No critical care applied the patient's treatment course. EKGs were reviewed by myself documented by the resident physician if pertinent. Manager Medical Device on-call as well as the hospitals for admission. Patient will be transfused 1 unit of platelets and admitted for further management and evaluation. Patient is otherwise stable. Be monitored here in the emergency department until the admission process is completed.
[2018-08-21 20:58] LABS: Lymphocytes # 0.6 K/mcL (0.6-4.6); Monocytes # 0.4 K/mcL (0.0-1.3); Platelet Estimate Marked Decrease (Normal)
[2018-08-21] MEDS ORDERED: 0.9 % Sodium Chloride 250 ML ONE (22:32)
[2018-08-22] MEDS ORDERED: *HR* Dextrose 50 % in Water (Syg) 50 ML SYRINGE IVP PRN (00:17)
[2018-08-22] MEDS ORDERED: Dextrose Gel 15 GM/37.5 ML TUBE PO PRN ×2 (00:17)
[2018-08-22] MEDS ORDERED: D5% in Water 1,000 ML IVC PRN (00:17)
[2018-08-22] MEDS ORDERED: MOM Conc 10 ML UD.LIQ PO PRN (00:18)
[2018-08-22] MEDS ORDERED: Naloxone 0.4 MG/ML INJ IVP PRN (00:18)
[2018-08-22] MEDS ORDERED: Ondansetron 4 MG/2 ML VIAL IVP PRN (00:18)
[2018-08-22] MEDS: Insulin LISPRO 300 UNITS/3 ML VIAL SQ SCH ×5 (00:47→20:48)
--- NOTE | 2018-08-22 01:06 | Internal Med History&Physical ---
Date of Encounter: 08/21/18 Time of Encounter: 23:30 Internal Medicine - H&P: HPI Chief complaint: Abnormal Labs/Low Platelets Admitted From: Emergency Dept Plans for Post Hospital Care: Home History of present illness: Ms. Vincent is a 68 year old female w/PMH of diabetes controlled with Metformin, HLD, HTN, hx of heart murmur, and chronic liver disease presents from the ED d/t her PCP sending her here for a low platelet count of 8,000. 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 Patient also reports left upper quadrant discomfort. There is some edema w/mild palpation which is d/t possible splenomegaly. Pt. reports taking both doses of her Metformin on 08/21/18, so CT of the abdomen contraindicated for 24 hours d/t risk for renal damage. Pt. also reports constipation, neuralgia in LEs, unsteadiness on her feet, dizziness, and shortness of breath. Patient denies recent illness, fever, chills, nausea, vomiting, headache, changes in vision, unusual bleeding, chest pain, cough, chest congestion, diarrhea, numbness, tingling, pre-syncope, or syncope. Past Med Surg Social Fam HX - Past Medical History Source: patient, old records reviewed Medical history: cirrhosis (Non-alcoholic), diabetes, hyperlipidemia, hypertension, liver disease Additional medical history: sleep apnea Psychiatric history: no psych history - Past Surgical History Surgical History: angioplasty/stent ([facility] x2 - No stents), hysterectomy (Total) Additional surgical history: tubal ligation - Social History Smoking Status: Former smoker Packs per day: 1 PPD - Reports quitting 30 years ago Smokeless Tobacco Status: No Alcohol use: none Drug use: none Current living situation: Home Activity Level: Independent ambulation Recent Out of Country Travel Within the Last 8 Weeks: No Exposure or Possible Exposure to Illness During Travel: No - Family History Mother Race: Family Member Ethnicity: Non- Living Status: Still Living Hx Family Cardiac Disorders: Yes (HTN, CVA) Hx Family Endocrine Disorder: Yes (DM) Hx Family Neurologic Disorders: Yes (CVA) Father Race: Family Member Ethnicity: Non- Living Status: Age at : 85 Cause of : CVA Hx Family Cardiac Disorders: Yes (HTN, CVA) Hx Family Endocrine Disorder: Yes (DM) Brother Race: Family Member Ethnicity: Non- Living Status: Still Living Hx Family Endocrine Disorder: Yes (Fatty liver) Hx Family Musculoskeletal Disorders: Yes (Arthritis) Sister Race: Family Member Ethnicity: Non- Living Status: Still Living Hx Family Cardiac Disorders: Yes (CVA) Hx Family Endocrine Disorder: Yes (Fatty liver, DM) Hx Family Neurologic Disorders: Yes (CVA) Internal Medicine - H&P: Meds Aspirin 81 mg PO DAILY #30 tab.chew 05/03/16 [Rx] metFORMIN [Glucophage] 1,000 mg PO BID 05/03/16 [History] Lisinopril [Zestril] 10 mg PO DAILY PRN 08/30/16 [History] Sulfamethoxazole/Trimeth DS [Bactrim DS] 1 each PO BID #20 tablet 10/17/16 [Rx] Allergy/AdvReac Type Severity Reaction Status Date / Time No Known Allergies Allergy Verified 10/17/16 14:07 All Systems PM: A 10-system review of systems was performed and is negative for pertinent findings except as documented above in the HPI. - Constitutional Constitutional: as per HPI, no chills, no fever(s), no night sweats - EENT Eyes: no change in vision, no discharge, no pain, no photophobia Ears: no ear discharge, no ear pain, no tinnitus Nose, mouth and throat: no dysphagia, no nasal discharge, no neck pain, no sore throat - Breasts Breasts: as per HPI - Cardiovascular Cardiovascular ROS IM: dyspnea, dyspnea on exertion, lightheadedness, no chest pain, no diaphoresis, no palpitations, no syncope - Respiratory Respiratory: as per HPI, dyspnea, dyspnea on exertion, no cough, no wheezing, no excessive phlegm production - Gastrointestinal Gastrointestinal: as per HPI, abdominal pain (LUQ), constipation, no diarrhea, no hematemesis, no hematochezia, no melena, no nausea, no vomiting - Genitourinary Genitourinary: no change in urinary stream, no dysuria, no flank pain, no hematuria Menstruation: as per HPI, post hysterectomy (Total) - Musculoskeletal Musculoskeletal ROS IM: as per HPI, no numbness, no tingling - Integumentary Integumentary IM: no rash, no unusual bruising - Neurological Neurological ROS: as per HPI, dizziness, other (Neuralgia in LEs), no confusion, no convulsions, no focal weakness, no numbness, no tingling, no tremor(s) - Psychiatric Psychiatric: as per HPI - Endocrine Endocrine IM: as per HPI - Hematologic/Lymphatic Hematologic/Lymphatic: no easy bruising - Allergic/Immunologic Allergic/Immunologic: as per HPI - Constitutional Vitals: Temp Pulse Resp BP Pulse Ox 98.1 F 75 16 130/75 97 08/22/18 00:13 08/22/18 00:13 08/22/18 00:13 08/22/18 00:08/22/18 00:13 General appearance: Present: cooperative, A&O X 3, pleasant, no acute distress, obese, answers questions appropriately Exam: Patient examined at bedside. Patient resting in bed and reports mild shortness of breath and unsteadiness on her feet. Patient also reports left upper quadrant discomfort. There is some edema present with mild palpation to left upper quadrant which may be indicative of splenomegaly. Patient is a diabetic who takes metformin with last dose on 08/21. CT of the abdomen and pelvis with contrast should be ordered on 08/22 in order to assess hepatomegaly from current autoimmune cirrhosis as well as splenomegaly. Patient denies any other symptoms or complaints on exam. VS: 98.2F temp, HR 71, RR 16, BP 135/79, SPO2 95% on room air. - Head Head exam: Present: atraumatic, normocephalic - Eye Eye exam: Present: PERRL, conjuntiva pink, sclera anicteric Pupils: Present: PERRL - ENT ENT exam: Present: normal exam - Neck Neck exam general surgery: Present: normal inspection, supple, trachea midline. Absent: lymphadenopathy - Respiratory Respiratory exam: Present: CTAB. Absent: accessory muscle use, rales, rhonchi, wheezes - Cardiovascular Cardiovascular exam: Present: RRR, +S1, +S2. Absent: diastolic murmur, gallop, rubs, systolic murmur - GI/Abdominal GI/Abdominal exam: Present: normal bowel sounds, soft, no peritoneal signs. Absent: distended, tenderness - Rectal Rectal exam: Present: deferred - Additional comments: exam deferred. - Extremities Exam Extremities exam: Present: warm, radial pulses palpable and symmetrical. Absent: calf tenderness, cyanotic, pedal edema - Back Exam Back exam: Present: normal inspection - Neurological Exam Neurological exam: Present: alert, CN II-XII intact, oriented X3, no focal deficits. Absent: pronater drift, facial droop, speech deficit - Psychiatric Psychiatric exam: Present: normal affect, normal mood - Skin Skin exam: Present: dry, intact Internal Med - H&P Results - Labs CBC & Chem 7: 08/21/18 19:02 08/21/18 19:02 Labs: Short CBC 08/21/18 Range/Units 19:02 WBC 3.0 L (4.3-11.1) K/mcL Hgb 10.7 L (11.5-15.4) g/dL Hct 33.8 L (35.3-44.9) % Plt Count 9 L* (140-400) K/mcL Neutrophils # 2.0 (1.6-8.9) K/mcL BMP 08/21/18 19:02 Sodium 139 Potassium 4.0 Chloride 106 Carbon Dioxide 27 BUN 14 Creatinine 0.78 Glucose 196 H Calcium 9.3 - Assessment and Plan (1) Pancytopenia Current Visit: Yes Status: Acute Assessment and plan: Acute pancytopenia w/WBC of 3.0, RBC of 3.78, and platelets of 9. Pt. has chronic history of autoimmune cirrhosis and hx of thrombocytopenia and pancytopenia. Pt. sent to the ED today d/t platelets of 9. Transfusion of 1 unit of platelets ordered. Falls/safety precautions and up with assist ordered and discussed w/pt. d/t high risk for bleeding from falls. Pt. expresses understanding and agreement to plan. Pt. reports LUQ discomfort on exam w/mild palpation. Concern for possible splenomegaly d/t current thrombocytopenia. Pt. takes Metformin BID w/last dose on 08/21/18. CT of the abdomen/pelvis w/contrast should be done to assess for hepatomegaly and splenomegaly d/t hx, but will madhuri t 24 hours to avoid kidney damage. SCDs on bilateral LEs for DVT prophylaxis d/t current platelets. Pt. is high risk for further morbidity and complications d/t current pancytopenia, hx of autoimmune cirrhosis, current risk for falls/bleeding from dizziness and thrombocytopenia, suspected splenomegaly, risk factors, and obesity. Observation. (2) Cirrhosis Current Visit: Yes Status: Chronic Assessment and plan: Hx of chronic autoimmune non-alcoholic cirrhosis. Current pancytopenia. Hepatic panel in a.m. labs. Avoid hepatotoxins. Qualifiers: Hepatic cirrhosis type: unspecified hepatic cirrhosis Ascites presence: without ascites Qualified Code(s): K74.60 - Unspecified cirrhosis of liver (3) HLD (hyperlipidemia) Current Visit: Yes Status: Chronic Assessment and plan: Hx of chronic HLD. Pt. not currently on statin. Lipid panel in a.m. labs. Consider adding statin to home medications on discharge if warranted by lipid panel results. Qualifiers: Hyperlipidemia type: pure hypercholesterolemia Qualified Code(s): E78.00 - Pure hypercholesterolemia, unspecified; E78.0 - Pure hypercholesterolemia (4) HTN (hypertension) Current Visit: Yes Status: Chronic Assessment and plan: Hx of chronic HTN. Monitor pt. and VS. Continue pts. Lisinopril. Qualifiers: Hypertension type: essential hypertension Qualified Code(s): I10 - Essential (primary) hypertension (5) Diabetes mellitus type 2, noninsulin dependent Current Visit: Yes Status: Chronic Assessment and plan: Hx of chronic diabetes controlled by metformin. Last two doses were on 08/21/18. Will hold patient's metformin d/t possibility of CT imaging w/contrast and administer low-dose correction sliding scale insulin and hypoglycemic protocol. BG checks before meals at bedtime. A1c in a.m. labs. (6) Neuropathy Current Visit: Yes Status: Chronic Assessment and plan: Hx of chronic neuropathy and spasms in LEs. Pt. reports she does not currently take Gabapentin for this. Will monitor and add Zanaflex if needed. (7) DVT prophylaxis Current Visit: Yes Status: Acute Assessment and plan: Bilateral SCDs on LEs for DVT prophylaxis due to current pancytopenia. - Time Spent With Patient Total time spent is greater than 50% in coordination of care (as documented) at patient's floor/unit and/or counseling patient:
[2018-08-22 05:59] LABS: Mean Corpuscular HGB Conc 31.7 g/dL (31.6-35.5); White Blood Count 2.1 K/mcL (4.3-11.1)
[2018-08-22 06:01] LABS: Hematocrit 30.3 % (35.3-44.9); Hemoglobin 9.6 g/dL (11.5-15.4); Immature Platelets 12.4 % (1.1-6.1); Mean Corpuscular Hemoglobin 28.2 pg (28.0-33.3); Mean Corpuscular Volume 88.9 fL (83.0-100.0); Red Blood Count 3.41 M/mcL (3.82-4.97); Red Cell Distribution Width 15.6 % (11.5-14.5)
[2018-08-22 06:04] LABS: Platelet Count 11 K/mcL (140-400)
[2018-08-22 06:06] LABS: INR 1.1; Prothrombin Time 12.8 Seconds (9.4-12.1)
[2018-08-22 06:09] LABS: Activated Partial Thrombo Time 36.5 Seconds (26.0-36.0)
[2018-08-22 06:18] LABS: Albumin/Globulin Ratio 1.8 (1.1-2.2); Bilirubin,Direct 0.1 mg/dL (0.0-0.2); Bilirubin,Indirect 0.3 mg/dL (0.0-1.2); Bilirubin,Total 0.4 mg/dL (0.3-1.0); Globulin 2.2 g/dL (2.4-3.5); Total Protein 6.2 g/dL (6.4-8.9)
[2018-08-22 06:20] LABS: BUN/Creatinine Ratio 20 (6-26); Blood Urea Nitrogen 13 mg/dL (8-23); Calcium 9.1 mg/dL (8.6-10.3); Carbon Dioxide 24 mEq/L (23-29); Chloride 106 mEq/L (98-107); Chol/HDL Ratio 4.4 (0-4.9); Cholesterol 173 mg/dL (< 200); Glucose 152 mg/dL (70-105); HDL Cholesterol 39 mg/dL (40-59); LDL Cholesterol,Calculated 108 mg/dL (0-99); Magnesium 1.9 mg/dL (1.6-2.6); Osmolality,Calculated 293 (280-300); Potassium 4.1 mEq/L (3.5-5.1); Sodium 140 mEq/L (136-145); Triglycerides 130 mg/dL (< 150); eGFR For African Americans > 60 (> 60); eGFR For Non-African Americans > 60 (> 60)
[2018-08-22] MEDS ORDERED: 0.9 % Sodium Chloride 250 ML ONE (06:30)
[2018-08-22 09:08] LABS: Estimated Average Glucose 148 mg/dl; Hemoglobin A1C 6.8 %
--- NOTE | 2018-08-22 11:27 | Event Note ---
Date of Encounter: 08/22/18 Time of Encounter: 11:27 Patient was seen and examined earlier this morning by hospitalist services. Currently patient denies any pain or discomfort. She has received 3 units of platelets initially presented with platelet count of 8000 we will repeat platelet count. No signs or symptoms of active bleeding. Appears neurologically intact at this time. She does complain of some left upper quadrant plane and she is tender to palpation. No ascites noted. Did review the case with GI we will see patient up on consult. We will obtain CT of abdomen. LFTs are stable at this time. He will has been consulted and appreciate recommendations. Review treatment plan with the patient who verbalized understanding.
--- NOTE | 2018-08-22 13:55 | Electrocardiograph Report ---
[address] [place] [address] Test Date: 2018-08-21 Pat Name: Dina Vincent Department: [id number] Room: 3B66 Gender: F [employer]: : 1950 Requested By: Sandro Gonzalez Order Number: [id number] Reading MD: Ileana Hickman Measurements Intervals [place] Rate: 85 P: 26 KS: 186 QRS: -42 QRSD: 96 T: 43 QT: 399 QTc: 475 Interpretive Statements Sinus rhythm Probable left atrial enlargement Left axis deviation Low voltage, precordial leads Electronically Signed On 08-22-2018 13:53:35 EDT by Ileana Hickman
[2018-08-22 14:36] LABS: Eosinophils % 1.2 %; Hematocrit 30.3 % (35.3-44.9); Hemoglobin 9.5 g/dL (11.5-15.4); Immature Granulocytes % 6.4 % (0-4); Lymphocytes # 0.5 K/mcL (0.6-4.6); Lymphocytes % 28.3 %; Mean Corpuscular HGB Conc 31.4 g/dL (31.6-35.5); Mean Corpuscular Hemoglobin 28.5 pg (28.0-33.3); Monocytes # 0.4 K/mcL (0.0-1.3); Monocytes % 24.3 %; Neutrophils # 0.7 K/mcL (1.6-8.9); Red Blood Count 3.33 M/mcL (3.82-4.97); Red Cell Distribution Width 15.7 % (11.5-14.5); Segmented Neutrophils % 39.8 %; White Blood Count 1.7 K/mcL (4.3-11.1)
[2018-08-22 14:42] LABS: Platelet Count 30 K/mcL (140-400)
[2018-08-22 15:05] LABS: Platelet Estimate Marked Decrease (Normal)
[2018-08-22 15:06] LABS: Anisocytosis 1+ (Not Present)
--- NOTE | 2018-08-22 15:19 | Oncology Inp Consult Note ---
<Norma oRdas - Last Filed: 08/22/18 15:50> Date of Encounter: 08/22/18 Time of Encounter: 15:16 Assessment and Plan (1) Thrombocytopenia Status: Chronic Assessment and plan: Thrombocytopenia in the presence of cirrhosis Plt 9 in ED. 3 units platelets transfused. Repeat Plt 30. If Plt>20, ok to discharge home from Hem/Onc perspective. Patient to follow up with Dr. Kong at [facility] in 2 weeks. Appointment will need scheduled. If active bleeding noted or concerns, patient will need to call cancer center and discuss with Dr. Kong's team, after discharge. - Data of Consult Patient: new to practice Requesting Physician: Briseida Gonzalez MD Primary Care Provider: Darlene Leslie - Consult Narrative Reason for consult: thrombocytopenia History of present illness: Dina, a 68yo female with known history of non-alcoholic cirrhosis, presented to the ED from her PCP due to platelet count of 9000. Dr. Bauman has been managing her cirrhosis. Patient received 1 unit of platelets on 08/21/18 and is planned to received 2 units of platelets today. She denies active bleeding. Medical history: cirrhosis, DM, HTN, HLD Review of systems: + dizziness, unsteady + shortness of breath + constipation Denies fever or chills. Denies nausea, vomiting, diarrhea, or abdominal pain. Denies headache or vision changes. Denies bleeding. Past Med Surg Social Fam HX - Past Medical History Medical history: cirrhosis (Non-alcoholic), diabetes, hyperlipidemia, hypertension, liver disease Additional medical history: sleep apnea Psychiatric history: no psych history - Past Surgical History Surgical History: angioplasty/stent ([facility] x2 - No stents), hysterectomy (Total) Additional surgical history: tubal ligation - Social History Smoking Status: Former smoker Packs per day: 1 PPD - Reports quitting 30 years ago Smokeless Tobacco Status: No Alcohol use: none Drug use: none - Family History Mother Race: Family Member Ethnicity: Non- Living Status: Still Living Hx Family Cardiac Disorders: Yes (HTN, CVA) Hx Family Endocrine Disorder: Yes (DM) Hx Family Neurologic Disorders: Yes (CVA) Father Race: Family Member Ethnicity: Non- Living Status: Age at : 85 Cause of : CVA Hx Family Cardiac Disorders: Yes (HTN, CVA) Hx Family Endocrine Disorder: Yes (DM) Brother Race: Family Member Ethnicity: Non- Living Status: Still Living Hx Family Endocrine Disorder: Yes (Fatty liver) Hx Family Musculoskeletal Disorders: Yes (Arthritis) Sister Race: Family Member Ethnicity: Non- Living Status: Still Living Hx Family Cardiac Disorders: Yes (CVA) Hx Family Endocrine Disorder: Yes (Fatty liver, DM) Hx Family Neurologic Disorders: Yes (CVA) Medications and Allergies metFORMIN [Glucophage] 1,000 mg PO DAILY PRN 05/03/16 [History] Lisinopril [Zestril] 10 mg PO DAILY 08/30/16 [History] Aspirin [Adult Aspirin Regimen] 81 mg PO DAILY 08/22/18 [History] Betamethasone/Propylene Glyc [Betamethasone Dp Aug 0.05% Lot] 1 appl TP 2XW PRN 08/22/18 [History] Nitrofurantoin Monohyd/M-Cryst [Macrobid 100 mg Capsule] 100 mg PO Q12H 08/22/18 [History] Non-Formulary Medication 1 appl TP 3XW PRN 08/22/18 [History] Allergy/AdvReac Type Severity Reaction Status Date / Time No Known Allergies Allergy Verified 08/22/18 12:04 Oncology Inpatient Results Labs: Laboratory Results - last 24 hr 08/21/18 08/21/18 08/21/18 19:02 19:02 19:54 WBC 3.0 L RBC 3.78 L Hgb 10.7 L Hct 33.8 L MCV 89.4 MCH 28.3 MCHC 31.7 RDW 15.9 H Plt Count 9 L* MPV TNP Immature Gran % Seg Neutrophils % 60.0 Band Neutrophils % 6.0 H Lymphocytes % 20.0 Monocytes % 14.0 Eosinophils % Basophils % Neutrophils # 2.0 Lymphocytes # 0.6 Monocytes # 0.4 Eosinophils # Basophils # Platelet Estimate Marked Decrease L Immature Plt Fraction 19.2 H Anisocytosis PT INR APTT Sodium 139 Potassium 4.0 Chloride 106 Carbon Dioxide 27 BUN 14 Creatinine 0.78 Est GFR ( Amer) > 60 Est GFR (Non-Af Amer) > 60 BUN/Creatinine Ratio 18 Glucose 196 H POC Glucose Est Mean Plasma Glucose Hemoglobin A1c Calculated Osmolality 294 Calcium 9.3 Magnesium Total Bilirubin Direct Bilirubin Indirect Bilirubin AST ALT Alkaline Phosphatase Serum Total Protein Albumin Globulin Albumin/Globulin Ratio Triglycerides Cholesterol LDL Cholesterol, Calc VLDL Cholesterol, Calc HDL Cholesterol Cholesterol/HDL Ratio Blood Type O POSITIVE Antibody Screen NEGATIVE 08/21/18 08/22/18 08/22/18 22:29 05:20 05:20 WBC 2.1 L RBC 3.41 L Hgb 9.6 L Hct 30.3 L MCV 88.9 MCH 28.2 MCHC 31.7 RDW 15.6 H Plt Count 11 L* MPV TNP Immature Gran % Seg Neutrophils % Band Neutrophils % Lymphocytes % Monocytes % Eosinophils % Basophils % Neutrophils # Lymphocytes # Monocytes # Eosinophils # Basophils # Platelet Estimate Immature Plt Fraction 12.4 H Anisocytosis PT INR APTT Sodium Potassium Chloride Carbon Dioxide BUN Creatinine Est GFR ( Amer) Est GFR (Non-Af Amer) BUN/Creatinine Ratio Glucose POC Glucose 150 H Est Mean Plasma Glucose 148 Hemoglobin A1c 6.8 H Calculated Osmolality Calcium Magnesium Total Bilirubin Direct Bilirubin Indirect Bilirubin AST ALT Alkaline Phosphatase Serum Total Protein Albumin Globulin Albumin/Globulin Ratio Triglycerides Cholesterol LDL Cholesterol, Calc VLDL Cholesterol, Calc HDL Cholesterol Cholesterol/HDL Ratio Blood Type Antibody Screen 08/22/18 08/22/18 08/22/18 05:20 05:20 05:20 WBC RBC Hgb Hct MCV MCH MCHC RDW Plt Count MPV Immature Gran % Seg Neutrophils % Band Neutrophils % Lymphocytes % Monocytes % Eosinophils % Basophils % Neutrophils # Lymphocytes # Monocytes # Eosinophils # Basophils # Platelet Estimate Immature Plt Fraction Anisocytosis PT 12.8 H INR 1.1 APTT 36.5 H Sodium 140 Potassium 4.1 Chloride 106 Carbon Dioxide 24 BUN 13 Creatinine 0.64 Est GFR ( Amer) > 60 Est GFR (Non-Af Amer) > 60 BUN/Creatinine Ratio 20 Glucose 152 H POC Glucose Est Mean Plasma Glucose Hemoglobin A1c Calculated Osmolality 293 Calcium 9.1 Magnesium 1.9 Total Bilirubin 0.4 Direct Bilirubin 0.1 Indirect Bilirubin 0.3 AST 15 ALT 14 Alkaline Phosphatase 89 Serum Total Protein 6.2 L Albumin 4.0 Globulin 2.2 L Albumin/Globulin Ratio 1.8 Triglycerides 130 Cholesterol 173 LDL Cholesterol, Calc 108 H VLDL Cholesterol, Calc 26 HDL Cholesterol 39 L Cholesterol/HDL Ratio 4.4 Blood Type Antibody Screen 08/22/18 14:18 WBC 1.7 L RBC 3.33 L Hgb 9.5 L Hct 30.3 L MCV 91.0 MCH 28.5 MCHC 31.4 L RDW 15.7 H Plt Count 30 L* D MPV TNP Immature Gran % 6.4 H Seg Neutrophils % 39.8 Band Neutrophils % Lymphocytes % 28.3 Monocytes % 24.3 Eosinophils % 1.2 Basophils % 0.0 Neutrophils # 0.7 L Lymphocytes # 0.5 L Monocytes # 0.4 Eosinophils # 0.0 Basophils # 0.0 Platelet Estimate Marked Decrease L Immature Plt Fraction Anisocytosis 1+ A PT INR APTT Sodium Potassium Chloride Carbon Dioxide BUN Creatinine Est GFR ( Amer) Est GFR (Non-Af Amer) BUN/Creatinine Ratio Glucose POC Glucose Est Mean Plasma Glucose Hemoglobin A1c Calculated Osmolality Calcium Magnesium Total Bilirubin Direct Bilirubin Indirect Bilirubin AST ALT Alkaline Phosphatase Serum Total Protein Albumin Globulin Albumin/Globulin Ratio Triglycerides Cholesterol LDL Cholesterol, Calc VLDL Cholesterol, Calc HDL Cholesterol Cholesterol/HDL Ratio Blood Type Antibody Screen Consult Discharge Plan - Plan Referrals: Vannessa Villafana DO [Primary Care Provider] - (Appointment has been requested.) Inpatient Charges Provider: Dr. Dudley Slater <Tori Slater - Last Filed: 08/23/18 07:44> Date of Encounter: 08/23/18 - Data of Consult Requesting Physician: Briseida Gonzalez MD Primary Care Provider: Darlene Leslie Oncology - Exam - Constitutional General appearance: no acute distress - Head Head exam: Present: atraumatic, normal inspection - Eye Eye exam: Present: sclera anicteric - ENT ENT exam: Present: mucous membranes moist - Neck Neck exam: Present: full ROM - Respiratory Respiratory exam: Present: CTAB - Cardiovascular Cardiovascular exam: Present: +S1, +S2 - GI/Abdominal GI/Abdominal exam: Present: normal bowel sounds, soft - Extremities Exam Extremities exam: Present: normal inspection - Neurological Exam Neurological exam: Present: alert, CN II-XII intact, oriented X3, no focal deficits - Psychiatric Psychiatric exam: Present: normal mood - Skin Skin exam: Present: normal color - Attending Attestation PAtient was seen, examined on 08/22/18. PAtient clinically has no bleeding issues. She does not follow with hematology, but follows with GI. S/p Platelt transfusion yesterday plt at 11k. She is being transfused another unit. POssible d/c if plt >20 to follow up as outpatient in clinic. I examined this patient and my medical decision-making was reviewed with the Advanced Practice Nurse, Norma Rodas. I agree with the documented findings, disposition and treatment plan as described except to the extent set forth below.
[2018-08-23] MEDS ORDERED: Isovue-370 500 ML BOTTLE IVP ONE (05:22)
[2018-08-23 07:43] LABS: Eosinophils % 0.6 %
[2018-08-23 07:44] LABS: Hematocrit 32.1 % (35.3-44.9); Hemoglobin 10.1 g/dL (11.5-15.4); Immature Granulocytes % 7.5 % (0-4); Lymphocytes # 0.5 K/mcL (0.6-4.6); Mean Corpuscular HGB Conc 31.5 g/dL (31.6-35.5); Mean Corpuscular Hemoglobin 28.5 pg (28.0-33.3); Mean Corpuscular Volume 90.4 fL (83.0-100.0); Monocytes # 0.4 K/mcL (0.0-1.3); Neutrophils # 0.7 K/mcL (1.6-8.9); Red Blood Count 3.55 M/mcL (3.82-4.97); Red Cell Distribution Width 15.4 % (11.5-14.5); Segmented Neutrophils % 41.9 %; White Blood Count 1.7 K/mcL (4.3-11.1)
[2018-08-23 07:55] LABS: Platelet Count 18 K/mcL (140-400)
[2018-08-23 07:57] LABS: BUN/Creatinine Ratio 18 (6-26); Blood Urea Nitrogen 12 mg/dL (8-23); Calcium 9.3 mg/dL (8.6-10.3); Carbon Dioxide 27 mEq/L (23-29); Chloride 105 mEq/L (98-107); Glucose 165 mg/dL (70-105); Osmolality,Calculated 293 (280-300); Potassium 4.1 mEq/L (3.5-5.1); Sodium 140 mEq/L (136-145); eGFR For African Americans > 60 (> 60); eGFR For Non-African Americans > 60 (> 60)
[2018-08-23 08:43] LABS: Platelet Estimate Marked Decrease (Normal)
[2018-08-23] MEDS: Insulin LISPRO 300 UNITS/3 ML VIAL SQ SCH ×4 (09:41→21:40)
--- NOTE | 2018-08-23 11:26 | Internal Med Progress Note ---
Hospitalist Progress Note - Encounter Date of Encounter: 08/23/18 Time of Encounter: 11:26 - Subjective Interval History: Patient was seen and examined at bedside patient states she is anxious to leave discussed with the patient the seriousness of her condition-that she is high risk for bleeding. Patient expressing that she is white to take a hiking trip next week advised patient that this is not safe at the present time due to her low platelets and risk of bleeding. Advised patient this time to adhere to fall precautions and asked for help before getting out of bed. Discussed treatment plan with the patient which also includes platelet transfusion as well as evaluation by GI and oncology. Patient verbalized understanding - Exam Vitals: Temp Pulse Resp BP Pulse Ox 97.8 F 74 16 121/83 96 08/23/18 06:39 08/23/18 06:39 08/23/18 06:39 08/23/18 06:39 08/23/18 06:39 Exam: Skin: Free of rash and discoloration. Eyes: Sclera is white. There is no discharge from eyes. ENMT: Oral/pharyngeal mucosa is normal in appearance. There is no discharge from nose or ears. Respiratory: Normal breath sounds with no crackles and wheezes bilaterally. CV: Heart is regular with no gallop or murmur. GI: Abdomen is flat and soft with no palpable mass or visceromegaly. : There is no tenderness in patient's flanks bilaterally. Neuro exam: He has good strength in upper and lower extremities. He has normal eye movements. Psychiatric: He has normal affect. His thought process is appropriate to the situation. - Assessment and Plan (1) Diabetes mellitus type 2, noninsulin dependent Current Visit: Yes Status: Chronic Assessment and Plan: Hx of chronic diabetes controlled by metformin. Last two doses were on 08/21/18. Will hold patient's metformin d/t possibility of CT imaging w/contrast and administer low-dose correction sliding scale insulin and hypoglycemic protocol. BG checks before meals at bedtime. A1c . 6.8 (2) DVT prophylaxis Current Visit: Yes Status: Acute Assessment and Plan: Bilateral SCDs on LEs for DVT prophylaxis due to current pancytopenia. (3) Pancytopenia Current Visit: Yes Status: Acute Assessment and Plan: Acute pancytopenia w/WBC of 3.0, RBC of 3.78, and platelets of 9. Pt. has chronic history of autoimmune cirrhosis and hx of thrombocytopenia and pancytopenia. Pt. sent to the ED today d/t platelets of 9. Transfusion of 1 unit of platelets ordered. Falls/safety precautions and up with assist ordered and discussed w/pt. d/t high risk for bleeding from falls. Pt. expresses understanding and agreement to plan. Pt. reports LUQ discomfort on exam w/mild palpation. Concern for possible splenomegaly d/t current thrombocytopenia. Pt. takes Metformin BID w/last dose on 08/21/18. CT of the abdomen/pelvis w/contrast should be done to assess for hepatomegaly and splenomegaly d/t hx, but will wait 24 hours to avoid kidney damage. SCDs on bilateral LEs for DVT prophylaxis d/t current platelets. Pt. is high risk for further morbidity and complications d/t current pancytopenia, hx of autoimmune cirrhosis, current risk for falls/bleeding from dizziness and thrombocytopenia, suspected splenomegaly, risk factors, and obesity. Observation. 08/23 Patient continues to experience pancytopenia chronic history of autoimmune psoriases and history of thrombocytopenia pancytopenia. On presentation her platelets were 8000 she received 3 units of platelets and platelet count increased to 30,000. This morning she was down to 18,000. No active bleeding noted evaluated by hematology-recommending bone marrow biopsy (4) Cirrhosis Current Visit: Yes Status: Chronic Assessment and Plan: Hx of chronic autoimmune non-alcoholic cirrhosis. Current pancytopenia. Hepatic panel in a.m. labs. Avoid hepatotoxins. 08/23 CT of abdomen completed no acute changes in her liver or spleen labs are stable evaluated by GI can follow-up as an outpatient (5) HLD (hyperlipidemia) Current Visit: Yes Status: Chronic Assessment and Plan: Hx of chronic HLD. Pt. not currently on statin. Lipid panel in a.m. labs. Consider adding statin to home medications on discharge if warranted by lipid panel results. (6) HTN (hypertension) Current Visit: Yes Status: Chronic Assessment and Plan: Hx of chronic HTN. Monitor pt. and VS. Continue pts. Lisinopril. (7) Neuropathy Current Visit: Yes Status: Chronic Assessment and Plan: Hx of chronic neuropathy and spasms in LEs. Pt. reports she does not currently take Gabapentin for this. Will monitor and add Zanaflex if needed. - Time Spent with Patient Total time spent is greater than 50% in coordination of care (as documented) at patient's floor/unit and/or counseling patient: Internal Medicine: Result - Labs CBC & Chem 7: 08/23/18 06:40 08/23/18 06:40 Labs: Short CBC 08/22/18 08/23/18 Range/Units 14:18 06:40 WBC 1.7 L 1.7 L (4.3-11.1) K/mcL Hgb 9.5 L 10.1 L (11.5-15.4) g/dL Hct 30.3 L 32.1 L (35.3-44.9) % Plt Count 30 L* D 18 L* (140-400) K/mcL Neutrophils # 0.7 L 0.7 L (1.6-8.9) K/mcL BMP 08/23/18 06:40 Sodium 140 Potassium 4.1 Chloride 105 Carbon Dioxide 27 BUN 12 Creatinine 0.65 Glucose 165 H Calcium 9.3 - ABG Interpretation ABG results: PT/INR, D-dimer PT 12.8 Seconds (9.4-12.1) H 08/22/18 05:20 - Impressions Impressions Abdomen/Pelvis CT 08/23/18 05:22 IMPRESSION: Cirrhosis with no great change from the comparison. Splenomegaly with no great change from prior study. D/ / 08/23/2018 08:37:29 Ludwin Vergara MD / robi Interpreting Provider: Ludwin Vergara MD Consult Discharge Plan - Plan Referrals: Vannessa Villafana DO [Primary Care Provider] - (Appointment has been requested.) (4) Cirrhosis Qualifiers: Hepatic cirrhosis type: unspecified hepatic cirrhosis Ascites presence: without ascites Qualified Code(s): K74.60 - Unspecified cirrhosis of liver (5) HLD (hyperlipidemia) Qualifiers: Hyperlipidemia type: pure hypercholesterolemia Qualified Code(s): E78.00 - Pure hypercholesterolemia, unspecified; E78.0 - Pure hypercholesterolemia (6) HTN (hypertension) Qualifiers: Hypertension type: essential hypertension Qualified Code(s): I10 - Essential (primary) hypertension
--- NOTE | 2018-08-23 12:02 | Gastroenterology Consult Note ---
Date of Encounter: 08/23/18 Time of Encounter: 11:58 - Assessment and plan (1) Cirrhosis Current Visit: Yes Status: Chronic Assessment and plan: Patient with known history of Costello seen by Dr. Bauman. Her labs including her AST ALTs, alkaline phosphatase and meld score are normal. CT abdomen showed no acute changes in her liver or spleen. The patient is stable from a GI perspective and is okay to be discharged pending agreement with other teams. Qualifiers: Hepatic cirrhosis type: unspecified hepatic cirrhosis Ascites presence: without ascites Qualified Code(s): K74.60 - Unspecified cirrhosis of liver (2) Thrombocytopenia Current Visit: Yes Status: Chronic - Time Spent With Patient Total time spent is greater than 50% in coordination of care (as documented) at patient's floor/unit and/or counseling patient: GI History of Present Illness - Data of Consult Requesting Physician: Briseida Gonzalez MD - Consult Narrative Reason for consult: Abdominal pain with history of cirrhosis History of present illness: Ms. Vincent is a 68 year old female who is consulted to GI for abdominal pain with history of Costello cirrhosis. Patient was admitted to hospital for low platelets. She is also found to be pancytopenic and hematology oncology is following up outpatient. Patient has a history of Costello and is seen by Dr. salazar. Currently her AST and ALTs levels are 15 and 14. Her alkaline phosphatase is 89. And her meld score is 7. Patient states that she is currently having her costal pain bilaterally which has been ongoing for several years. She denies any pain in the epigastric area. Patient is feeling somnolent and states that her mental status is at baseline. Past Med Surg Social Fam HX - Past Medical History Medical history: cirrhosis (Non-alcoholic), diabetes, hyperlipidemia, hypertension, liver disease Additional medical history: sleep apnea Psychiatric history: no psych history - Past Surgical History Surgical History: angioplasty/stent ([facility] x2 - No stents), hysterectomy (Total) Additional surgical history: tubal ligation - Social History Smoking Status: Former smoker Packs per day: 1 PPD - Reports quitting 30 years ago Smokeless Tobacco Status: No Alcohol use: none Drug use: none - Family History Mother Race: Family Member Ethnicity: Non- Living Status: Still Living Hx Family Cardiac Disorders: Yes (HTN, CVA) Hx Family Endocrine Disorder: Yes (DM) Hx Family Neurologic Disorders: Yes (CVA) Father Race: Family Member Ethnicity: Non- Living Status: Age at : 85 Cause of : CVA Hx Family Cardiac Disorders: Yes (HTN, CVA) Hx Family Endocrine Disorder: Yes (DM) Brother Race: Family Member Ethnicity: Non- Living Status: Still Living Hx Family Endocrine Disorder: Yes (Fatty liver) Hx Family Musculoskeletal Disorders: Yes (Arthritis) Sister Race: Family Member Ethnicity: Non- Living Status: Still Living Hx Family Cardiac Disorders: Yes (CVA) Hx Family Endocrine Disorder: Yes (Fatty liver, DM) Hx Family Neurologic Disorders: Yes (CVA) - Gastrointestinal Gastrointestinal: Present: abdominal pain (In the lower costal regions bilaterally.). Absent: constipation, diarrhea, nausea, vomiting - Constitutional Constitutional: fatigue, weight loss (Pounds over 5 years due to exercise and nutrition. Not acute) - Cardiovascular Cardiovascular ROS: Absent: chest pain - Respiratory Respiratory IM: Absent: dyspnea - Genitourinary Genitourinary: Absent: change in color, Urinary frequency - Constitutional Vitals: Temp Pulse Resp BP Pulse Ox 98.2 F 74 15 134/84 94 08/23/18 11:24 08/23/18 11:24 08/23/18 11:24 08/23/18 11:24 08/23/18 11:24 General appearance: Present: A&O X 3, pleasant, no acute distress - Head Head exam: Present: atraumatic, normal inspection - Eye Eye exam: Present: normal appearance - Neck Neck exam general surgery: Present: normal inspection - Respiratory Respiratory exam: Present: CTAB - Cardiovascular Cardiovascular exam: Present: RRR, +S1, +S2 - GI/Abdominal GI/Abdominal exam: Present: normal bowel sounds, tenderness, no peritoneal signs. Absent: distended, guarding, rebound, rigid Additional comments: Tenderness at the costal margin bilaterally. Reproduced with palpation. - Expanded GI/Abdominal Exam GI/Abdominal exam expanded: Absent: ascites - Extremities Exam Extremities exam: Present: normal inspection - Neurological Exam Neurological exam: Present: CN II-XII intact, oriented X3 - Psychiatric Psychiatric exam: Present: normal mood - Skin Skin exam: Present: dry, intact, warm Results - Labs CBC & Chem 7: 08/23/18 06:40 08/23/18 06:40 Labs: Last Result 08/23/18 06:40 Calcium 9.3 Entire Visit 08/23/18 06:40 Hgb 10.1 L Hct 32.1 L - ABG ABG results: PT/INR, D-dimer PT 12.8 Seconds (9.4-12.1) H 08/22/18 05:20 - Impressions Impressions Abdomen/Pelvis CT 08/23/18 05:22 IMPRESSION: Cirrhosis with no great change from the comparison. Splenomegaly with no great change from prior study. D/ / 08/23/2018 08:37:29 Ludwin Vergara MD / robi Interpreting Provider: Ludwin Vergara MD Consult Discharge Plan - Plan Referrals: Vannessa Villafana DO [Primary Care Provider] - (Appointment has been requested.)
[2018-08-23] MEDS ORDERED: 0.9 % Sodium Chloride 500 ML ONE (15:23)
--- NOTE | 2018-08-23 16:33 | Oncology Inp Progress Note ---
<Norma Rodas M - Last Filed: 08/23/18 18:00> Date of Encounter: 08/23/18 Time of Encounter: 14:10 (1) Thrombocytopenia Current Visit: Yes Status: Chronic Assessment and plan: Thrombocytopenia in the presence of cirrhosis Plt 9 in ED. 3 units platelets transfused. Repeat Plt 30, then dropped to 18 this morning. ANC 700. May consider bone marrow aspirate and biopsy, if patient agreeable. Oncology: Subj Interval history: Dina notes that she is feeling well today and denies complaints. She questions when she will get go home. Her notes that they will be travelling to [facility] for about two weeks. She will not be hiking when her family goes out. She denies episodes of bleeding. She follows with GI (Dr. Bauman) and will have a follow up upon her return. GI consulting today. - Constitutional General appearance: cooperative, no acute distress, obese - Head Head exam: Present: normal inspection, normocephalic - Extremities Exam Extremities exam: Present: normal capillary refill, normal inspection - Neurological Exam Neurological exam: Present: alert, oriented X3. Absent: facial droop, speech deficit - Psychiatric Psychiatric exam: Present: normal affect, normal mood - Skin Skin exam: Present: normal color, warm Additional comments: psoriasis Oncology: Obj Data - Labs CBC & Chem 7: 08/23/18 06:40 08/23/18 06:40 Consult Discharge Plan - Plan Referrals: Vannessa Villafana DO [Primary Care Provider] - (Appointment has been requested.) Inpatient Charges Provider: Dr. Rodolfo Browne <Jaswinder Browne S - Last Filed: 08/24/18 14:21> Date of Encounter: 08/23/18 Oncology: Obj Data - Labs CBC & Chem 7: 08/24/18 04:34 08/24/18 04:34 Inpatient Charges Provider: Dr. Rodolfo Browne Follow up - Inpatient: [id number] - Attending Attestation I examined this patient and my medical decision-making was reviewed with the Advanced Practice Nurse. I agree with the documented findings, disposition and treatment plan as described except to the extent set forth below. 1. Cirrhosis of liver with splenomegaly 17 cm craniocaudal by CAT scan in 08/23/2018. No ascites. She has no other stigmata of cirrhosis. Liver enzymes normal creatinine normal INR 1.1. 2. Pancytopenia. Neutrophils around [id number]. The last 2 days it is low at 700. Hemoglobin around 10. 3. Severe thrombocytopenia. She is hospitalized 08/22/2018 with platelet count of 8000 on 08/21/2018 She is getting platelet transfusion but she is refractory. Today platelet count 18,000 . She did not have a great response to a phoresis platelet transfusion. Clinically no bleeding Given the degree of pancytopenia she would benefit from a bone marrow biopsy to rule out component of lymphoma or other marrow infiltrating process. Smudge cells reported 2017 She may have a component of immune mediated thrombocytopenia. But I would like to avoid steroids because of her hyperglycemia and diabetes Consider trying Romiplostim 1 g per KG per week which would help patient agreeable for bone marrow biopsy and will schedule that through IR for early next week. Patient wants to leave on vacation next Sunday for one week
[2018-08-24 04:53] LABS: Red Cell Distribution Width 15.5 % (11.5-14.5)
[2018-08-24 04:55] LABS: Basophils % 0.4 %; Eosinophils % 0.4 %; Hematocrit 31.9 % (35.3-44.9); Hemoglobin 9.9 g/dL (11.5-15.4); Immature Granulocytes % 5.8 % (0-4); Lymphocytes # 0.6 K/mcL (0.6-4.6); Lymphocytes % 26.3 %; Mean Corpuscular Hemoglobin 27.8 pg (28.0-33.3); Mean Corpuscular Volume 89.6 fL (83.0-100.0); Mean Platelet Volume 11.2 fL (9.4-12.4); Monocytes # 0.6 K/mcL (0.0-1.3); Monocytes % 28.1 %; Neutrophils # 0.9 K/mcL (1.6-8.9); Red Blood Count 3.56 M/mcL (3.82-4.97); White Blood Count 2.2 K/mcL (4.3-11.1)
[2018-08-24 04:59] LABS: Platelet Count 33 K/mcL (140-400)
[2018-08-24 05:11] LABS: BUN/Creatinine Ratio 20 (6-26); Blood Urea Nitrogen 15 mg/dL (8-23); Calcium 9.7 mg/dL (8.6-10.3); Carbon Dioxide 28 mEq/L (23-29); Chloride 105 mEq/L (98-107); Glucose 142 mg/dL (70-105); Osmolality,Calculated 299 (280-300); Potassium 4.4 mEq/L (3.5-5.1); Sodium 143 mEq/L (136-145); eGFR For African Americans > 60 (> 60); eGFR For Non-African Americans > 60 (> 60)
[2018-08-24 05:40] LABS: Platelet Estimate Decreased (Normal); Reactive Lymphocytes Present (Not Present)
[2018-08-24] MEDS: Insulin LISPRO 300 UNITS/3 ML VIAL SQ SCH ×2 (07:41→14:25)
[2018-08-24 14:42] VITALS: BP 139/68
--- NOTE | 2018-08-24 15:05 | Discharge Summary ---
- NOTES TO OUTPATIENT PROVIDER Notes to Outpatient Provider: Patient will need follow-up with oncology on Sunday/Sunday for bone marrow biopsy-continue to monitor platelets as outpatient patient was advised and given education on bleeding precautions. Advised patient to avoid aspirin Date of Encounter: 08/24/18 Time of Encounter: 15:02 - Discharge Diagnosis (1) Diabetes mellitus type 2, noninsulin dependent Priority: Secondary Status: Chronic (2) Pancytopenia Priority: Primary Status: Acute (3) Cirrhosis Priority: Secondary Status: Chronic Qualifiers: Hepatic cirrhosis type: unspecified hepatic cirrhosis Ascites presence: without ascites Qualified Code(s): K74.60 - Unspecified cirrhosis of liver (4) HLD (hyperlipidemia) Priority: Secondary Status: Chronic Qualifiers: Hyperlipidemia type: pure hypercholesterolemia Qualified Code(s): E78.00 - Pure hypercholesterolemia, unspecified; E78.0 - Pure hypercholesterolemia (5) HTN (hypertension) Priority: Secondary Status: Chronic Qualifiers: Hypertension type: essential hypertension Qualified Code(s): I10 - Essential (primary) hypertension (6) Neuropathy Priority: Secondary Status: Chronic Hospital course: Ms. Vincent is a 68 year old female known history of nonalcoholic cirrhosis diabetes hyperlipidemia hypertension presented to the ED from her PCP due to platelet count of 9000 she was 8000 on presentation to the ER. She did express that she has some left upper quadrant tenderness denies any nausea vomiting diarrhea any hematochezia or melena or hematemesis evaluated by heme/onc- she was given 3 units of platelets and her platelet count increased to 30,000. She was evaluated by GI and CT of abdomen was obtained which showed no acute changes in her liver or spleen. Hepatic panel was unremarkable. The next day her platelet count did decrease back down to 18,000 she was given 2 more units of platelets and platelets increased to 33,000. Hematology recommending patient follow-up on Sunday/Sunday for bone marrow aspirate and biopsy patient is jos[place] antonio nning a hiking trip in [place] advised patient against hiking and remote areas and the risk of bleeding when platelets are low particularly head bleeds. Patient verbalized understanding. Advised patient not take any aspirin. Advised patient to follow-up with GI outpatient as well as hematology. She has not displayed any bleeding during this admission vital signs have been stable. She is ready for discharge this time - Time Spent with Patient Total time spent providing and/or coordinating discharge services: - Discharge Medications Prescriptions: Discontinued Aspirin [Adult Aspirin Regimen] 81 mg PO DAILY No Action metFORMIN [Glucophage] 1,000 mg PO DAILY PRN PRN Reason: Blood Sugar - High Lisinopril [Zestril] 10 mg PO DAILY Nitrofurantoin Monohyd/M-Cryst [Macrobid 100 mg Capsule] 100 mg PO Q12H Non-Formulary Medication 1 appl TP 3XW PRN PRN Reason: PSORIASIS Betamethasone/Propylene Glyc [Betamethasone Dp Aug 0.05% Lot] 1 appl TP 2XW PRN PRN Reason: PSORIASIS Home Medications: metFORMIN [Glucophage] 1,000 mg PO DAILY PRN 05/03/16 [History] Lisinopril [Zestril] 10 mg PO DAILY 08/30/16 [History] Betamethasone/Propylene Glyc [Betamethasone Dp Aug 0.05% Lot] 1 appl TP 2XW PRN 08/22/18 [History] Nitrofurantoin Monohyd/M-Cryst [Macrobid 100 mg Capsule] 100 mg PO Q12H 08/22/18 [History] Non-Formulary Medication 1 appl TP 3XW PRN 08/22/18 [History] Allergies/Adverse Reactions: Allergy/AdvReac Type Severity Reaction Status Date / Time No Known Allergies Allergy Verified 08/22/18 12:04 Date of admission: 08/21/18 21:50 Primary care physician: Darlene Leslie Consults: 08/21/18 21:28 Consult to Oncology Hematology [CONS] Stat Consulting Provider: No Han Reason for Consult: Thrombocytopenia and Pancytopenia Call Completed: Yes 08/22/18 00:15 Consult to Nutrition [CONS] Routine Comment: CHOCOLATE BOOST Consulting Provider: NUTRITION Reason for Dietary Consult: PO Supplementation 08/22/18 00:21 Consult to [employer] [CONS] Routine Reason for SW Consult: Please assess for possible home needs for post- discharge planning. 08/22/18 16:59 Consult to Gastroenterology [CONS] Routine Consulting Provider: Gastroenterology Samina Reason for Consult: abd pain cirrhosis of liver Time Notified: 17:02 Call Completed: Yes 08/23/18 19:04 Consult to Interventional Radiology [CONS] Routine Consulting Provider: Radiology Interventional Cols Reason for Consult: bone marrow aspirate and biopsy Call Completed: No Discharging clinician: Laura Nascimento Anticipated date of discharge: 08/24/18 - Constitutional Vitals: Temp Pulse Resp BP Pulse Ox 98.4 F 78 15 139/68 95 08/24/18 14:39 08/24/18 14:39 08/24/18 14:39 08/24/18 14:39 08/24/18 14:39 General appearance: Present: cooperative, A&O X 3, pleasant, no acute distress, obese, answers questions appropriately Exam: Skin: Free of rash and discoloration. Eyes: Sclera is white. There is no discharge from eyes. ENMT: Oral/pharyngeal mucosa is normal in appearance. There is no discharge from nose or ears. Respiratory: Normal breath sounds with no crackles and wheezes bilaterally. CV: Heart is regular with no gallop or murmur. GI: Abdomen is flat and soft with no palpable mass or visceromegaly. : There is no tenderness in patient's flanks bilaterally. Neuro exam: He has good strength in upper and lower extremities. He has normal eye movements. Psychiatric: He has normal affect. His thought process is appropriate to the situation. - Patient Status Disposition: Home, Self-Care Condition: Good Functional capacity at discharge: independent ambulation Overall status at discharge: patient is back to baseline - Discharge Instructions Follow Up With: Vannessa Villafana DO [Primary Care Provider] - (Appointment has been requested.) Additional Instructions: bleeding precautions-follow up with oncology 08/26/2018 Dr. Browne office will call with an appointment. - Diet and Activity Activity: other Diet: advance to your usual diet
== END 2018-08-24 16:02 | disposition home or self-care (01) ==
LOC: 3BNU 18:36 → EMEROOARM 18:36 → 3BNU 22:02
PROVIDERS: ADMIT Internal Medicine; ATTEND Internal Medicine

== ENCOUNTER 2019-10-04 13:28 | Observation (INO) ==
[2019-10-04] MEDS ORDERED: 0.9 % Sodium Chloride 1,000 ML IVC ONE (13:39)
[2019-10-04] MEDS ORDERED: Ibuprofen 400 MG TABLET PO ONE (13:47)
[2019-10-04 14:38] LABS: Red Cell Distribution Width 15.5 % (11.5-14.5)
[2019-10-04 14:39] LABS: Hematocrit 32.2 % (35.3-44.9); Hemoglobin 10.1 g/dL (11.5-15.4); Immature Platelets 6.6 % (1.1-6.1); Mean Corpuscular HGB Conc 31.4 g/dL (31.6-35.5); Mean Corpuscular Hemoglobin 28.6 pg (28.0-33.3); Mean Corpuscular Volume 91.2 fL (83.0-100.0); Mean Platelet Volume 13.2 fL (9.4-12.4); Monocytes # 0.3 K/mcL (0.0-1.3); Red Blood Count 3.53 M/mcL (3.82-4.97)
[2019-10-04 14:43] LABS: White Blood Count 0.8 K/mcL (4.3-11.1)
[2019-10-04 14:44] LABS: Platelet Count 19 K/mcL (140-400)
[2019-10-04 14:53] LABS: Alanine Aminotransferase 33 Units/L (7-52); Albumin 4.3 g/dL (3.5-5.7); Albumin/Globulin Ratio 2.4 (1.1-2.2); Alkaline Phosphatase 79 Units/L (34-104); Aspartate Amino Transferase 45 Units/L (13-39); BUN/Creatinine Ratio 19 (6-26); Bilirubin,Total 0.8 mg/dL (0.3-1.0); Blood Urea Nitrogen 15 mg/dL (8-23); Calcium 8.3 mg/dL (8.6-10.3); Carbon Dioxide 24 mEq/L (23-29); Chloride 100 mEq/L (98-107); Globulin 1.8 g/dL (2.4-3.5); Glucose 263 mg/dL (70-105); Osmolality,Calculated 284 (280-300); Potassium 3.9 mEq/L (3.5-5.1); Sodium 132 mEq/L (136-145); Total Protein 6.1 g/dL (6.4-8.9); eGFR For African Americans > 60 (> 60); eGFR For Non-African Americans > 60 (> 60)
[2019-10-04 15:14] LABS: Lymphocytes # 0.2 K/mcL (0.6-4.6); Neutrophils # 0.4 K/mcL (1.6-8.9)
[2019-10-04 15:15] LABS: Platelet Estimate Marked Decrease (Normal)
[2019-10-04 15:48] LABS: Bacteria,Urine Few per hpf (None-Few); Bilirubin,Urine Negative (Negative); Blood,Urine Trace (Negative); Clarity,Urine Clear (Clear); Color,Urine Light-Yellow (Yellow); Glucose,Urine (UA) 100 mg/dL (Normal); Ketones,Urine Negative (Negative); Leukocyte Esterase,Urine Negative (Negative); Mucus,Urine Few per lpf (None-Few); Nitrite,Urine Negative (Negative); Protein,Urine Negative (Neg-Trace); Specific Gravity,Urine 1.015 (1.010-1.025); Squamous Epithelial Cell,Urine Few per hpf (None-Few); Urobilinogen,Urine Normal (Normal); WBC,Urine 0-3 per hpf (0-3)
[2019-10-04] MEDS ORDERED: *HR* Promethazine 25 MG/ML VIAL IVP PRN (16:10)
[2019-10-04] MEDS ORDERED: Dextrose Gel 15 GM/37.5 ML TUBE PO PRN ×2 (16:15)
[2019-10-04] MEDS ORDERED: Dexamethasone 10 MG/ML VIAL IVP SCH (16:45)
[2019-10-04] MEDS: Cefepime HCl 2,000 MG in Water for inj. (sterile) 20 ML IVP SCH ×2 (17:00→23:00)
[2019-10-04 17:32] LABS: INR 1.3; Prothrombin Time 14.5 Seconds (9.4-12.1)
[2019-10-04 18:09] LABS: Bordetella Pertussis Not Detected (Not Detect); Chlamydophila pneumoniae Not Detected (Not Detect); Coronavirus 229E Not Detected (Not Detect); Coronavirus HKU1 Not Detected (Not Detect); Coronavirus NL63 Not Detected (Not Detect); Coronavirus OC43 Not Detected (Not Detect); Human Metapneumovirus Not Detected (Not Detect); Human Rhinovirus/Enterovirus Not Detected (Not Detect); Influenza A Subtype 2009 H1 Not Detected (Not Detect); Influenza B Not Detected (Not Detect); Mycoplasma pneumoniae Not Detected (Not Detect); Parainfluenza Virus 1 Not Detected (Not Detect); Parainfluenza Virus 2 Not Detected (Not Detect); Parainfluenza Virus 3 Not Detected (Not Detect); Parainfluenza Virus 4 Not Detected (Not Detect); Respiratory Syncytial Virus Not Detected (Not Detect); SARS-CoV-2 Not Detected (Not Detect)
[2019-10-04 18:11] LABS: Adenovirus Not Detected (Not Detect)
[2019-10-04] MEDS: Insulin LISPRO 300 UNITS/3 ML VIAL SQ SCH (20:09)
[2019-10-04] MEDS ORDERED: Insulin LISPRO 300 UNITS/3 ML VIAL SQ SCH (21:00)
[2019-10-04] MEDS: predniSONE 20 MG TABLET PO SCH (21:36)
[2019-10-05] MEDS ORDERED: Acetaminophen 325 MG TABLET PO ONE (00:24)
[2019-10-05 05:10] LABS: Red Blood Count 3.31 M/mcL (3.82-4.97)
[2019-10-05 05:11] LABS: Hemoglobin 9.4 g/dL (11.5-15.4); Immature Platelets 8.8 % (1.1-6.1); Mean Corpuscular HGB Conc 31.3 g/dL (31.6-35.5); Mean Corpuscular Hemoglobin 28.4 pg (28.0-33.3); Mean Corpuscular Volume 90.6 fL (83.0-100.0); Mean Platelet Volume 13.3 fL (9.4-12.4); Red Cell Distribution Width 15.6 % (11.5-14.5)
[2019-10-05 05:22] LABS: White Blood Count 0.8 K/mcL (4.3-11.1)
[2019-10-05 05:24] LABS: BUN/Creatinine Ratio 17 (6-26); Blood Urea Nitrogen 12 mg/dL (8-23); Calcium 8.2 mg/dL (8.6-10.3); Carbon Dioxide 25 mEq/L (23-29); Chloride 105 mEq/L (98-107); Glucose 127 mg/dL (70-105); Osmolality,Calculated 283 (280-300); Potassium 3.4 mEq/L (3.5-5.1); Sodium 136 mEq/L (136-145); eGFR For African Americans > 60 (> 60); eGFR For Non-African Americans > 60 (> 60)
[2019-10-05] MEDS: Insulin LISPRO 300 UNITS/3 ML VIAL SQ SCH ×3 (07:12→16:30)
[2019-10-05] MEDS: predniSONE 20 MG TABLET PO SCH (10:04)
[2019-10-05] MEDS: Cefepime HCl 2,000 MG in Water for inj. (sterile) 20 ML IVP SCH ×2 (10:07→16:17)
[2019-10-05] MEDS ORDERED: Acetaminophen 325 MG TABLET PO PRN (11:01)
[2019-10-05] MEDS ORDERED: Ibuprofen 600 MG TABLET PO ONE (11:53)
[2019-10-05] MEDS ORDERED: Vancomycin 1,500 MG/265 ML IV.SOLN IVPB ONE (12:35)
[2019-10-05] MEDS ORDERED: 0.9 % Sodium Chloride 250 ML ONE (15:04)
[2019-10-05] MEDS ORDERED: Vancomycin 500 MG in 0.9 % Sodium Chloride Mini Bag 100 ML IVPB ONE (15:20)
[2019-10-05 15:55] VITALS: BP 130/73
[2019-10-05] MEDS ORDERED: Aminoglycoside Consult 1 EACH MC ONE (18:00)
[2019-10-06] MEDS ORDERED: Vancomycin 1,500 MG/265 ML IV.SOLN IVPB SCH (01:00)
== END 2019-10-05 18:01 | disposition short-term general hospital (02) ==
LOC: 2ANU 13:28 → EMEROOARM 13:28 → SUATTDRO 18:29 → 2ANU 19:33
PROVIDERS: ADMIT Internal Medicine; ATTEND Family Medicine

== ENCOUNTER 2020-03-01 17:48 | Observation (INO) ==
[2020-03-01] MEDS ORDERED: Isovue-370 500 ML BOTTLE IVP ONE (18:33)
[2020-03-01 19:28] LABS: Hematocrit 38.1 % (35.3-44.9); Hemoglobin 11.8 g/dL (11.5-15.4); Immature Platelets 14.1 % (1.1-6.1); Mean Corpuscular Volume 90.3 fL (83.0-100.0); Red Blood Count 4.22 M/mcL (3.82-4.97); Red Cell Distribution Width 15.8 % (11.5-14.5); White Blood Count 3.1 K/mcL (4.3-11.1)
[2020-03-01 19:34] LABS: Platelet Count 28 K/mcL (140-400)
[2020-03-01 19:44] LABS: BUN/Creatinine Ratio 13 (6-26); Blood Urea Nitrogen 11 mg/dL (8-23); Calcium 9.2 mg/dL (8.6-10.3); Carbon Dioxide 25 mEq/L (23-29); Chloride 97 mEq/L (98-107); Glucose 111 mg/dL (70-105); Osmolality,Calculated 276 (280-300); Potassium 3.7 mEq/L (3.5-5.1); Sodium 133 mEq/L (136-145); Troponin I < 0.03 ng/mL (< 0.04); eGFR For African Americans > 60 (> 60); eGFR For Non-African Americans > 60 (> 60)
[2020-03-01 19:57] LABS: Lymphocytes # 0.7 K/mcL (0.6-4.6); Neutrophils # 1.4 K/mcL (1.6-8.9); Platelet Estimate Marked Decrease (Normal); Reactive Lymphocytes Present (Not Present)
[2020-03-02] MEDS ORDERED: Acetaminophen 325 MG TABLET PO PRN (01:07)
[2020-03-02] MEDS ORDERED: Ondansetron 4 MG/2 ML VIAL IVP PRN (01:07)
[2020-03-02] MEDS ORDERED: Naloxone 0.4 MG/ML INJ IVP PRN (01:07)
[2020-03-02] MEDS ORDERED: Dextrose Gel 15 GM/37.5 ML TUBE PO PRN ×2 (01:11)
[2020-03-02] MEDS ORDERED: D5% in Water 1,000 ML IVC PRN (01:11)
[2020-03-02] MEDS ORDERED: *HR* Dextrose 50 % in Water (Vial) 50 ML VIAL IVP PRN (01:11)
[2020-03-02] MEDS ORDERED: Insulin LISPRO 300 UNITS/3 ML VIAL SQ SCH ×3 (06:00→21:00)
[2020-03-02 06:56] LABS: Basophils % 0.6 %; Hematocrit 34.2 % (35.3-44.9); Hemoglobin 10.9 g/dL (11.5-15.4); Immature Granulocytes % 4.5 % (0-4); Immature Platelets 11.4 % (1.1-6.1); Lymphocytes # 0.4 K/mcL (0.6-4.6); Lymphocytes % 20.9 %; Mean Corpuscular HGB Conc 31.9 g/dL (31.6-35.5); Mean Corpuscular Hemoglobin 28.2 pg (28.0-33.3); Mean Corpuscular Volume 88.6 fL (83.0-100.0); Monocytes # 0.8 K/mcL (0.0-1.3); Monocytes % 43.5 %; Red Blood Count 3.86 M/mcL (3.82-4.97); Red Cell Distribution Width 15.7 % (11.5-14.5); Segmented Neutrophils % 30.5 %; White Blood Count 1.8 K/mcL (4.3-11.1)
[2020-03-02 07:02] LABS: INR 1.5; Prothrombin Time 16.8 Seconds (9.4-12.1)
[2020-03-02 07:05] LABS: Activated Partial Thrombo Time 35.7 Seconds (26.0-36.0)
[2020-03-02 07:15] LABS: C-Reactive Protein 105 mg/L (Less than 10); Lactate Dehydrogenase 180 Units/L (140-271)
[2020-03-02 07:17] LABS: Alanine Aminotransferase 15 Units/L (7-52); Albumin 4.4 g/dL (3.5-5.7); Albumin/Globulin Ratio 1.6 (1.1-2.2); Alkaline Phosphatase 64 Units/L (34-104); Aspartate Amino Transferase 23 Units/L (13-39); BUN/Creatinine Ratio 14 (6-26); Blood Urea Nitrogen 11 mg/dL (8-23); Calcium 8.7 mg/dL (8.6-10.3); Carbon Dioxide 23 mEq/L (23-29); Chloride 99 mEq/L (98-107); Globulin 2.8 g/dL (2.4-3.5); Glucose 145 mg/dL (70-105); Osmolality,Calculated 276 (280-300); Sodium 132 mEq/L (136-145); Total Protein 7.2 g/dL (6.4-8.9); Troponin I < 0.03 ng/mL (< 0.04); eGFR For African Americans > 60 (> 60); eGFR For Non-African Americans > 60 (> 60)
[2020-03-02 07:18] LABS: Neutrophils # 0.6 K/mcL (1.6-8.9)
[2020-03-02 07:20] LABS: Platelet Count 24 K/mcL (140-400)
[2020-03-02 07:35] LABS: Ferritin 81 ng/mL (10-120)
[2020-03-02] MEDS ORDERED: Dexamethasone 4 MG/ML VIAL IVP ONE (10:55)
[2020-03-02 12:40] VITALS: BP 138/62
[2020-03-02] MEDS ORDERED: *HR* Heparin 5,000 UNIT/ML VIAL SQ SCH (18:00)
== END 2020-03-02 13:50 | disposition home or self-care (01) ==
LOC: CDU 17:48 → EMEROOARM 17:48 → SUATTDRO 23:31 → CDU 23:53
PROVIDERS: ADMIT Family Medicine; ATTEND Internal Medicine

== ENCOUNTER 2020-03-07 13:00 | Inpatient (IN) ==
[2020-03-07 13:52] LABS: Hematocrit 37.8 % (35.3-44.9)
[2020-03-07 13:53] LABS: Hemoglobin 11.9 g/dL (11.5-15.4); Immature Platelets 11.1 % (1.1-6.1); Mean Corpuscular HGB Conc 31.5 g/dL (31.6-35.5); Mean Corpuscular Hemoglobin 28.3 pg (28.0-33.3); Mean Platelet Volume 12.3 fL (9.4-12.4); Monocytes # 0.7 K/mcL (0.0-1.3); Nucleated Red Blood Cells 0.4 /100 WBC (0); Red Cell Distribution Width 15.8 % (11.5-14.5); White Blood Count 4.5 K/mcL (4.3-11.1)
[2020-03-07] MEDS ORDERED: Ipratropium/Albuterol Neb 3 ML IH ONE (13:57)
[2020-03-07 13:58] LABS: Platelet Count 60 K/mcL (140-400)
[2020-03-07 14:03] LABS: INR 1.2; Prothrombin Time 14.2 Seconds (9.4-12.1)
[2020-03-07 14:05] LABS: Activated Partial Thrombo Time 28.3 Seconds (26.0-36.0)
[2020-03-07 14:14] LABS: Alanine Aminotransferase 21 Units/L (7-52); Albumin 4.2 g/dL (3.5-5.7); Albumin/Globulin Ratio 1.4 (1.1-2.2); Alkaline Phosphatase 74 Units/L (34-104); Aspartate Amino Transferase 24 Units/L (13-39); BUN/Creatinine Ratio 14 (6-26); Bilirubin,Direct 0.2 mg/dL (0.0-0.2); Bilirubin,Indirect 0.4 mg/dL (0.0-1.0); Bilirubin,Total 0.6 mg/dL (0.3-1.0); Blood Urea Nitrogen 10 mg/dL (8-23); C-Reactive Protein 50 mg/L (Less than 10); Calcium 9.4 mg/dL (8.6-10.3); Carbon Dioxide 25 mEq/L (23-29); Chloride 98 mEq/L (98-107); Glucose 285 mg/dL (70-105); Lactate Dehydrogenase 272 Units/L (140-271); Magnesium 1.7 mg/dL (1.6-2.6); Osmolality,Calculated 289 (280-300); Phosphorous 2.2 mg/dL (2.7-4.5); Potassium 3.8 mEq/L (3.5-5.1); Sodium 135 mEq/L (136-145); Total Protein 7.2 g/dL (6.4-8.9); Troponin I < 0.03 ng/mL (< 0.04); eGFR For African Americans > 60 (> 60); eGFR For Non-African Americans > 60 (> 60)
[2020-03-07 14:27] LABS: Lymphocytes # 0.9 K/mcL (0.6-4.6)
[2020-03-07 14:28] LABS: Platelet Estimate Decreased (Normal)
[2020-03-07 14:29] LABS: Polychromasia 1+ (Not Present); Reactive Lymphocytes Present (Not Present)
[2020-03-07 14:33] LABS: Ferritin 102 ng/mL (10-120)
[2020-03-07] MEDS ORDERED: *HR* Enoxaparin 40 MG/0.4 ML SYRINGE SQ SCH (15:07)
[2020-03-07] MEDS ORDERED: Ondansetron 4 MG/2 ML VIAL IVP PRN (15:07)
[2020-03-07] MEDS ORDERED: Acetaminophen 325 MG TABLET PO PRN (15:07)
[2020-03-07] MEDS ORDERED: Dextrose Gel 15 GM/37.5 ML TUBE PO PRN ×2 (15:14)
[2020-03-07] MEDS ORDERED: *HR* Dextrose 50 % in Water (Vial) 50 ML VIAL IVP PRN (15:14)
[2020-03-07] MEDS ORDERED: D5% in Water 1,000 ML IVC PRN (15:14)
[2020-03-07] MEDS ORDERED: Furosemide 20 MG/2 ML VIAL IVP SCH (15:15)
[2020-03-07] MEDS: Dexamethasone 4 MG/ML VIAL IVP SCH (16:49)
[2020-03-07] MEDS: Insulin LISPRO 300 UNITS/3 ML VIAL SUBQ SCH ×2 (17:03→20:59)
[2020-03-08 05:43] LABS: Hemoglobin 11.2 g/dL (11.5-15.4)
[2020-03-08 05:44] LABS: Hematocrit 34.5 % (35.3-44.9); Immature Platelets 8.1 % (1.1-6.1); Mean Corpuscular HGB Conc 32.5 g/dL (31.6-35.5); Mean Corpuscular Hemoglobin 28.8 pg (28.0-33.3); Mean Corpuscular Volume 88.7 fL (83.0-100.0); Mean Platelet Volume 10.8 fL (9.4-12.4); Red Blood Count 3.89 M/mcL (3.82-4.97); Red Cell Distribution Width 15.7 % (11.5-14.5); White Blood Count 3.4 K/mcL (4.3-11.1)
[2020-03-08 06:06] LABS: BUN/Creatinine Ratio 24 (6-26); Blood Urea Nitrogen 15 mg/dL (8-23); Calcium 9.2 mg/dL (8.6-10.3); Carbon Dioxide 27 mEq/L (23-29); Chloride 100 mEq/L (98-107); Glucose 195 mg/dL (70-105); Osmolality,Calculated 290 (280-300); Potassium 4.1 mEq/L (3.5-5.1); Sodium 137 mEq/L (136-145); eGFR For African Americans > 60 (> 60); eGFR For Non-African Americans > 60 (> 60)
[2020-03-08] MEDS: Insulin LISPRO 300 UNITS/3 ML VIAL SUBQ SCH ×4 (10:21→20:50)
[2020-03-08] MEDS: *HR* Amiodarone 200 MG TABLET PO SCH (10:22)
[2020-03-08] MEDS: lisinopriL 20 MG TABLET PO SCH (10:22)
[2020-03-08] MEDS: Dexamethasone 4 MG/ML VIAL IVP SCH (10:23)
[2020-03-08] MEDS: Furosemide 40 MG/4 ML VIAL IVP SCH ×2 (10:24→20:51)
[2020-03-08] MEDS: Ipratropium 1 PUFF INHALER IH SCH ×2 (18:13→20:07)
[2020-03-08] MEDS: Melatonin 3 MG TABLET PO SCH (20:51)
[2020-03-08] MEDS: Insulin DETEMIR 100 UNIT/ML X5UNITS SUBQ SCH (20:51)
[2020-03-09] MEDS: Ipratropium 1 PUFF INHALER IH SCH ×6 (00:01→20:46)
[2020-03-09 03:22] LABS: Hematocrit 39.7 % (35.3-44.9); Hemoglobin 12.5 g/dL (11.5-15.4); Mean Corpuscular HGB Conc 31.5 g/dL (31.6-35.5); Mean Corpuscular Hemoglobin 28.5 pg (28.0-33.3); Mean Corpuscular Volume 90.4 fL (83.0-100.0); Mean Platelet Volume 12.2 fL (9.4-12.4); Platelet Count 104 K/mcL (140-400); Red Blood Count 4.39 M/mcL (3.82-4.97); Red Cell Distribution Width 15.9 % (11.5-14.5)
[2020-03-09 03:24] LABS: White Blood Count 7.1 K/mcL (4.3-11.1)
[2020-03-09 03:26] LABS: BUN/Creatinine Ratio 28 (6-26); Blood Urea Nitrogen 27 mg/dL (8-23); Calcium 9.8 mg/dL (8.6-10.3); Carbon Dioxide 31 mEq/L (23-29); Chloride 95 mEq/L (98-107); Glucose 147 mg/dL (70-105); Osmolality,Calculated 292 (280-300); Potassium 3.7 mEq/L (3.5-5.1); Sodium 137 mEq/L (136-145); eGFR For African Americans > 60 (> 60); eGFR For Non-African Americans 58 (> 60)
[2020-03-09] MEDS: Insulin LISPRO 300 UNITS/3 ML VIAL SUBQ SCH ×4 (07:22→20:14)
[2020-03-09] MEDS: lisinopriL 20 MG TABLET PO SCH (09:05)
[2020-03-09] MEDS: *HR* Amiodarone 200 MG TABLET PO SCH (09:06)
[2020-03-09] MEDS: Dexamethasone 4 MG/ML VIAL IVP SCH (09:06)
[2020-03-09] MEDS: cefTRIAXone 2,000 MG in Water for inj. (sterile) 20 ML IVP SCH (11:58)
[2020-03-09] MEDS: Azithromycin 500 MG in 0.9 % Sodium Chloride 250 ML IVPB SCH (11:58)
[2020-03-09] MEDS: Melatonin 3 MG TABLET PO SCH (20:13)
[2020-03-09] MEDS: Insulin DETEMIR 100 UNIT/ML X5UNITS SUBQ SCH (20:14)
[2020-03-10] MEDS: Ipratropium 1 PUFF INHALER IH SCH ×7 (00:31→23:55)
[2020-03-10 06:00] LABS: Hematocrit 39.4 % (35.3-44.9); Hemoglobin 12.5 g/dL (11.5-15.4); Mean Corpuscular HGB Conc 31.7 g/dL (31.6-35.5); Mean Corpuscular Hemoglobin 28.6 pg (28.0-33.3); Mean Corpuscular Volume 90.2 fL (83.0-100.0); Mean Platelet Volume 12.3 fL (9.4-12.4); Platelet Count 100 K/mcL (140-400); Red Blood Count 4.37 M/mcL (3.82-4.97); Red Cell Distribution Width 16.2 % (11.5-14.5); White Blood Count 7.6 K/mcL (4.3-11.1)
[2020-03-10 06:18] LABS: BUN/Creatinine Ratio 36 (6-26); Blood Urea Nitrogen 28 mg/dL (8-23); Calcium 9.2 mg/dL (8.6-10.3); Carbon Dioxide 26 mEq/L (23-29); Chloride 99 mEq/L (98-107); Glucose 145 mg/dL (70-105); Osmolality,Calculated 290 (280-300); Potassium 3.5 mEq/L (3.5-5.1); Sodium 136 mEq/L (136-145); eGFR For African Americans > 60 (> 60); eGFR For Non-African Americans > 60 (> 60)
[2020-03-10] MEDS: Insulin LISPRO 300 UNITS/3 ML VIAL SUBQ SCH ×4 (07:50→20:41)
[2020-03-10] MEDS: Dexamethasone 4 MG/ML VIAL IVP SCH (07:52)
[2020-03-10] MEDS: *HR* Amiodarone 200 MG TABLET PO SCH (07:52)
[2020-03-10] MEDS: cefTRIAXone 2,000 MG in Water for inj. (sterile) 20 ML IVP SCH (11:47)
[2020-03-10] MEDS: Azithromycin 500 MG in 0.9 % Sodium Chloride 250 ML IVPB SCH (11:48)
[2020-03-10] MEDS: Insulin DETEMIR 100 UNIT/ML X5UNITS SUBQ SCH (20:37)
[2020-03-10] MEDS: Melatonin 3 MG TABLET PO SCH (20:44)
[2020-03-11] MEDS: Ipratropium 1 PUFF INHALER IH SCH ×5 (04:04→20:32)
[2020-03-11 05:27] LABS: Hemoglobin 11.6 g/dL (11.5-15.4); Immature Platelets 7.3 % (1.1-6.1); Mean Corpuscular HGB Conc 31.4 g/dL (31.6-35.5); Mean Corpuscular Hemoglobin 28.2 pg (28.0-33.3); Mean Platelet Volume 12.7 fL (9.4-12.4); Red Blood Count 4.11 M/mcL (3.82-4.97); Red Cell Distribution Width 16.2 % (11.5-14.5); White Blood Count 6.1 K/mcL (4.3-11.1)
[2020-03-11 05:28] LABS: Platelet Count 76 K/mcL (140-400)
[2020-03-11 05:45] LABS: BUN/Creatinine Ratio 27 (6-26); Blood Urea Nitrogen 21 mg/dL (8-23); Calcium 8.8 mg/dL (8.6-10.3); Carbon Dioxide 28 mEq/L (23-29); Chloride 101 mEq/L (98-107); Glucose 124 mg/dL (70-105); Osmolality,Calculated 290 (280-300); Potassium 3.9 mEq/L (3.5-5.1); Sodium 138 mEq/L (136-145); eGFR For African Americans > 60 (> 60); eGFR For Non-African Americans > 60 (> 60)
[2020-03-11 05:48] LABS: Lymphocytes # 1.3 K/mcL (0.6-4.6); Monocytes # 0.5 K/mcL (0.0-1.3); Neutrophils # 4.3 K/mcL (1.6-8.9)
[2020-03-11 05:49] LABS: Anisocytosis 1+ (Not Present); Microcytosis Present (Not Present); Platelet Estimate Decreased (Normal)
[2020-03-11] MEDS: Insulin LISPRO 300 UNITS/3 ML VIAL SUBQ SCH ×4 (09:59→21:19)
[2020-03-11] MEDS: *HR* Amiodarone 200 MG TABLET PO SCH (10:06)
[2020-03-11] MEDS: cefTRIAXone 2,000 MG in Water for inj. (sterile) 20 ML IVP SCH (10:07)
[2020-03-11] MEDS: Dexamethasone 4 MG/ML VIAL IVP SCH (10:07)
[2020-03-11] MEDS: Azithromycin 500 MG in 0.9 % Sodium Chloride 250 ML IVPB SCH (10:08)
[2020-03-11] MEDS: Melatonin 3 MG TABLET PO SCH (21:00)
[2020-03-11] MEDS: Insulin DETEMIR 100 UNIT/ML X5UNITS SUBQ SCH (21:19)
[2020-03-12] MEDS: Ipratropium 1 PUFF INHALER IH SCH ×7 (00:26→23:44)
[2020-03-12 01:23] LABS: Red Cell Distribution Width 16.2 % (11.5-14.5)
[2020-03-12 01:25] LABS: Hematocrit 36.2 % (35.3-44.9); Hemoglobin 10.9 g/dL (11.5-15.4); Mean Corpuscular HGB Conc 30.1 g/dL (31.6-35.5); Mean Corpuscular Hemoglobin 27.7 pg (28.0-33.3); Mean Corpuscular Volume 91.9 fL (83.0-100.0); Mean Platelet Volume 12.2 fL (9.4-12.4); Red Blood Count 3.94 M/mcL (3.82-4.97); White Blood Count 6.8 K/mcL (4.3-11.1)
[2020-03-12 01:27] LABS: Platelet Count 74 K/mcL (140-400)
[2020-03-12 01:41] LABS: BUN/Creatinine Ratio 29 (6-26); Blood Urea Nitrogen 22 mg/dL (8-23); Calcium 8.9 mg/dL (8.6-10.3); Carbon Dioxide 27 mEq/L (23-29); Chloride 103 mEq/L (98-107); Glucose 106 mg/dL (70-105); Osmolality,Calculated 288 (280-300); Potassium 4.3 mEq/L (3.5-5.1); Sodium 137 mEq/L (136-145); eGFR For African Americans > 60 (> 60); eGFR For Non-African Americans > 60 (> 60)
[2020-03-12 01:50] LABS: Lymphocytes # 1.2 K/mcL (0.6-4.6); Monocytes # 0.5 K/mcL (0.0-1.3); Platelet Estimate Decreased (Normal); Reactive Lymphocytes Present (Not Present)
[2020-03-12] MEDS: *HR* Amiodarone 200 MG TABLET PO SCH (08:46)
[2020-03-12] MEDS: Dexamethasone 4 MG/ML VIAL IVP SCH (08:47)
[2020-03-12] MEDS: Insulin LISPRO 300 UNITS/3 ML VIAL SUBQ SCH ×4 (08:50→21:12)
[2020-03-12] MEDS: cefTRIAXone 2,000 MG in Water for inj. (sterile) 20 ML IVP SCH (10:19)
[2020-03-12] MEDS: Azithromycin 250 MG TABLET PO SCH (10:20)
[2020-03-12] MEDS ORDERED: Benzonatate 100 MG CAPSULE PO PRN (10:38)
[2020-03-12] MEDS: Melatonin 3 MG TABLET PO SCH (21:12)
[2020-03-12] MEDS: Insulin DETEMIR 100 UNIT/ML X5UNITS SUBQ SCH (21:12)
[2020-03-13] MEDS: Ipratropium 1 PUFF INHALER IH SCH ×5 (04:36→20:47)
[2020-03-13 07:09] LABS: Eosinophils % 0.2 %; Hematocrit 35.6 % (35.3-44.9); Lymphocytes % 8.1 %
[2020-03-13 07:10] LABS: Basophils # 0.1 K/mcL (0.0-0.2); Basophils % 0.7 %; Immature Platelets 6.4 % (1.1-6.1); Lymphocytes # 0.7 K/mcL (0.6-4.6); Mean Corpuscular HGB Conc 30.9 g/dL (31.6-35.5); Mean Corpuscular Hemoglobin 27.9 pg (28.0-33.3); Mean Corpuscular Volume 90.4 fL (83.0-100.0); Mean Platelet Volume 10.8 fL (9.4-12.4); Monocytes % 12.4 %; Neutrophils # 5.7 K/mcL (1.6-8.9); Red Blood Count 3.94 M/mcL (3.82-4.97); Red Cell Distribution Width 16.1 % (11.5-14.5); Segmented Neutrophils % 68.6 %; White Blood Count 8.3 K/mcL (4.3-11.1)
[2020-03-13 07:12] LABS: Platelet Count 76 K/mcL (140-400)
[2020-03-13 07:28] LABS: BUN/Creatinine Ratio 32 (6-26); Blood Urea Nitrogen 20 mg/dL (8-23); Calcium 8.8 mg/dL (8.6-10.3); Carbon Dioxide 26 mEq/L (23-29); Chloride 101 mEq/L (98-107); Glucose 121 mg/dL (70-105); Osmolality,Calculated 284 (280-300); Potassium 4.3 mEq/L (3.5-5.1); Sodium 135 mEq/L (136-145); eGFR For African Americans > 60 (> 60); eGFR For Non-African Americans > 60 (> 60)
[2020-03-13] MEDS: Insulin LISPRO 300 UNITS/3 ML VIAL SUBQ SCH ×4 (08:00→22:47)
[2020-03-13] MEDS: *HR* Amiodarone 200 MG TABLET PO SCH (09:14)
[2020-03-13] MEDS: Dexamethasone 4 MG/ML VIAL IVP SCH (09:51)
[2020-03-13] MEDS: cefTRIAXone 2,000 MG in Water for inj. (sterile) 20 ML IVP SCH (09:56)
[2020-03-13] MEDS: Azithromycin 250 MG TABLET PO SCH (10:09)
[2020-03-13] MEDS: Melatonin 3 MG TABLET PO SCH (19:56)
[2020-03-13] MEDS: Insulin DETEMIR 100 UNIT/ML X5UNITS SUBQ SCH (22:50)
[2020-03-14] MEDS: Ipratropium 1 PUFF INHALER IH SCH ×7 (00:21→23:44)
[2020-03-14] MEDS: Dexamethasone 4 MG/ML VIAL IVP SCH (08:19)
[2020-03-14] MEDS: *HR* Amiodarone 200 MG TABLET PO SCH (08:19)
[2020-03-14] MEDS: Insulin LISPRO 300 UNITS/3 ML VIAL SUBQ SCH ×4 (08:57→21:06)
[2020-03-14] MEDS: Insulin DETEMIR 100 UNIT/ML X5UNITS SUBQ SCH (21:05)
[2020-03-14] MEDS: Melatonin 3 MG TABLET PO SCH (21:05)
[2020-03-15] MEDS: Ipratropium 1 PUFF INHALER IH SCH ×3 (04:29→11:44)
[2020-03-15 05:25] LABS: Hematocrit 36.9 % (35.3-44.9); Hemoglobin 11.6 g/dL (11.5-15.4); Immature Platelets 6.6 % (1.1-6.1); Lymphocytes # 0.9 K/mcL (0.6-4.6); Mean Corpuscular HGB Conc 31.4 g/dL (31.6-35.5); Mean Corpuscular Hemoglobin 28.5 pg (28.0-33.3); Mean Corpuscular Volume 90.7 fL (83.0-100.0); Mean Platelet Volume 11.3 fL (9.4-12.4); Red Blood Count 4.07 M/mcL (3.82-4.97); Red Cell Distribution Width 16.4 % (11.5-14.5); White Blood Count 9.3 K/mcL (4.3-11.1)
[2020-03-15 05:33] LABS: Platelet Count 86 K/mcL (140-400)
[2020-03-15 05:38] LABS: BUN/Creatinine Ratio 29 (6-26); Blood Urea Nitrogen 21 mg/dL (8-23); Calcium 8.7 mg/dL (8.6-10.3); Carbon Dioxide 27 mEq/L (23-29); Chloride 102 mEq/L (98-107); Glucose 103 mg/dL (70-105); Osmolality,Calculated 283 (280-300); Potassium 4.4 mEq/L (3.5-5.1); Sodium 135 mEq/L (136-145); eGFR For African Americans > 60 (> 60); eGFR For Non-African Americans > 60 (> 60)
[2020-03-15 06:04] LABS: Anisocytosis 1+ (Not Present); Basophils # 0.2 K/mcL (0.0-0.2); Monocytes # 0.9 K/mcL (0.0-1.3); Neutrophils # 6.9 K/mcL (1.6-8.9); Platelet Estimate Decreased (Normal); Reactive Lymphocytes Present (Not Present)
[2020-03-15 08:22] VITALS: BP 131/68
[2020-03-15] MEDS: Insulin LISPRO 300 UNITS/3 ML VIAL SUBQ SCH ×2 (09:17→14:03)
[2020-03-15] MEDS: *HR* Amiodarone 200 MG TABLET PO SCH (10:04)
[2020-03-15] MEDS: Dexamethasone 4 MG/ML VIAL IVP SCH (10:04)
== END 2020-03-15 14:07 | disposition home health service (06) | DRG 177 ==
LOC: EMEROOARM 13:00 → 2NENU 13:00
PROVIDERS: ADMIT Student in an Organized Health Care Education/Training Program; ATTEND Student in an Organized Health Care Education/Training Program

== ENCOUNTER 2020-03-24 11:51 | Inpatient (IN) ==
[2020-03-24 12:40] LABS: Red Cell Distribution Width 17.5 % (11.5-14.5)
[2020-03-24 12:42] LABS: Hematocrit 38.2 % (35.3-44.9); Hemoglobin 12.1 g/dL (11.5-15.4); Immature Platelets 5.4 % (1.1-6.1); Mean Corpuscular HGB Conc 31.7 g/dL (31.6-35.5); Mean Corpuscular Hemoglobin 29.2 pg (28.0-33.3); Red Blood Count 4.15 M/mcL (3.82-4.97)
[2020-03-24 12:54] LABS: VBG Ionized Calcium 1.15 mmol/L (1.15-1.35)
[2020-03-24 12:59] LABS: BUN/Creatinine Ratio 17 (6-26); Blood Urea Nitrogen 13 mg/dL (8-23); C-Reactive Protein 35 mg/L (Less than 10); Calcium 9.3 mg/dL (8.6-10.3); Carbon Dioxide 25 mEq/L (23-29); Chloride 105 mEq/L (98-107); Creatine Kinase 24 Units/L (30-223); Glucose 120 mg/dL (70-105); Magnesium 2.2 mg/dL (1.6-2.6); Osmolality,Calculated 287 (280-300); Phosphorous 3.3 mg/dL (2.7-4.5); Potassium 4.1 mEq/L (3.5-5.1); Sodium 138 mEq/L (136-145); Troponin I < 0.03 ng/mL (< 0.04); eGFR For African Americans > 60 (> 60); eGFR For Non-African Americans > 60 (> 60)
[2020-03-24 13:10] LABS: Platelet Count 41 K/mcL (140-400)
[2020-03-24 13:13] LABS: Lymphocytes # 1.2 K/mcL (0.6-4.6); Monocytes # 0.7 K/mcL (0.0-1.3); Neutrophils # 1.1 K/mcL (1.6-8.9); Platelet Estimate Decreased (Normal); Reactive Lymphocytes Present (Not Present)
[2020-03-24 13:23] LABS: Bilirubin,Urine Negative (Negative); Blood,Urine Negative (Negative); Clarity,Urine Clear (Clear); Color,Urine Light-Yellow (Yellow); Glucose,Urine (UA) Normal (Normal); Ketones,Urine Negative (Negative); Leukocyte Esterase,Urine Negative (Negative); Nitrite,Urine Negative (Negative); PH,Urine 6.5 pH Units (5.0-8.0); Protein,Urine Negative (Neg-Trace); Specific Gravity,Urine 1.013 (1.010-1.025); Urobilinogen,Urine Normal (Normal)
[2020-03-24] MEDS ORDERED: Naloxone 0.4 MG/ML INJ IVP PRN (15:26)
[2020-03-24] MEDS ORDERED: Ondansetron 4 MG/2 ML VIAL IVP PRN (15:26)
[2020-03-24] MEDS ORDERED: D5% in Water 1,000 ML IVC PRN (15:30)
[2020-03-24] MEDS ORDERED: Dextrose Gel 15 GM/37.5 ML TUBE PO PRN ×2 (15:30)
[2020-03-24] MEDS ORDERED: *HR* Dextrose 50 % in Water (Vial) 50 ML VIAL IVP PRN (15:30)
[2020-03-24 16:59] LABS: Appearance,CSF Clear (Clear)
[2020-03-24 17:03] LABS: Red Blood Cell,CSF < 2000 RBC/mcL
[2020-03-24] MEDS: Insulin LISPRO 300 UNITS/3 ML VIAL SUBQ SCH (17:05)
[2020-03-24 17:47] LABS: INR 1.2
[2020-03-24 17:50] LABS: Activated Partial Thrombo Time 32.8 Seconds (26.0-36.0)
[2020-03-24 17:51] LABS: Glucose,CSF 74 mg/dL (40-70); Total Protein,CSF 48 mg/dL (15-45)
[2020-03-24] MEDS ORDERED: Acetaminophen 325 MG TABLET PO ONE (19:28)
[2020-03-25] MEDS: Insulin LISPRO 300 UNITS/3 ML VIAL SUBQ SCH ×4 (00:10→18:15)
[2020-03-25 07:32] LABS: Hemoglobin 10.9 g/dL (11.5-15.4); Mean Corpuscular Volume 91.6 fL (83.0-100.0)
[2020-03-25 07:34] LABS: Hematocrit 34.8 % (35.3-44.9); Immature Platelets 5.6 % (1.1-6.1); Mean Corpuscular HGB Conc 31.3 g/dL (31.6-35.5); Mean Corpuscular Hemoglobin 28.7 pg (28.0-33.3); Mean Platelet Volume 10.9 fL (9.4-12.4); Red Cell Distribution Width 17.1 % (11.5-14.5)
[2020-03-25 07:50] LABS: Alanine Aminotransferase 24 Units/L (7-52); Albumin 3.7 g/dL (3.5-5.7); Albumin/Globulin Ratio 1.4 (1.1-2.2); Alkaline Phosphatase 53 Units/L (34-104); Aspartate Amino Transferase 17 Units/L (13-39); BUN/Creatinine Ratio 17 (6-26); Bilirubin,Total 0.6 mg/dL (0.3-1.0); Blood Urea Nitrogen 14 mg/dL (8-23); Calcium 8.7 mg/dL (8.6-10.3); Carbon Dioxide 25 mEq/L (23-29); Chloride 107 mEq/L (98-107); Globulin 2.7 g/dL (2.4-3.5); Glucose 148 mg/dL (70-105); Osmolality,Calculated 289 (280-300); Potassium 4.2 mEq/L (3.5-5.1); Sodium 138 mEq/L (136-145); Total Protein 6.4 g/dL (6.4-8.9); eGFR For African Americans > 60 (> 60); eGFR For Non-African Americans > 60 (> 60)
[2020-03-25 08:27] LABS: Platelet Count 28 K/mcL (140-400)
[2020-03-25] MEDS: Ipratropium 1 PUFF INHALER IH SCH ×5 (08:59→23:33)
[2020-03-25] MEDS ORDERED: DEXAMETHASONE PO SCH (09:00)
[2020-03-25] MEDS: *HR* Amiodarone 200 MG TABLET PO SCH (09:16)
[2020-03-25] MEDS: lisinopriL 20 MG TABLET PO SCH (09:17)
[2020-03-25] MEDS: Cholecalciferol (D-3) 1,000 UNIT (25MCG) TABLET PO SCH (09:18)
[2020-03-25] MEDS: Cyanocobalamin (B-12) 1,000 MCG TABLET PO SCH (09:18)
[2020-03-25] MEDS: Ascorbic Acid 500 MG TABLET PO SCH (09:20)
[2020-03-25] MEDS ORDERED: Acetaminophen 325 MG TABLET PO PRN (10:18)
[2020-03-25] MEDS ORDERED: *HR* LORazepam 0.5 MG TABLET PO ONE (11:45)
[2020-03-25 11:56] LABS: Lymphocytes # 0.6 K/mcL (0.6-4.6); Monocytes # 0.1 K/mcL (0.0-1.3); Neutrophils # 1.3 K/mcL (1.6-8.9)
[2020-03-25 12:04] LABS: Platelet Estimate Marked Decrease (Normal)
[2020-03-25] MEDS ORDERED: IVIG (wt based) Privigen 5 GM/50 ML INFUS..BTL IVC ONE (14:23)
[2020-03-25] MEDS ORDERED: Immune Glob, Gamma (Gammagard) 20 GM/200 ML INFUS..BTL IVC ONE ×2 (14:45→15:00)
[2020-03-25] MEDS: Immune Glob, Gamma (Gammagard) 20 GM/200 ML INFUS..BTL IVC SCH ×2 (15:58→18:07)
[2020-03-26] MEDS: Insulin LISPRO 300 UNITS/3 ML VIAL SUBQ SCH ×4 (00:21→16:03)
[2020-03-26 04:16] LABS: Eosinophils % 0.6 %
[2020-03-26 04:18] LABS: Hematocrit 33.6 % (35.3-44.9); Hemoglobin 10.5 g/dL (11.5-15.4); Immature Granulocytes % 4.6 % (0-4); Immature Platelets 5.6 % (1.1-6.1); Lymphocytes % 37.4 %; Mean Corpuscular HGB Conc 31.3 g/dL (31.6-35.5); Mean Corpuscular Hemoglobin 28.4 pg (28.0-33.3); Mean Corpuscular Volume 90.8 fL (83.0-100.0); Monocytes # 0.4 K/mcL (0.0-1.3); Neutrophils # 0.6 K/mcL (1.6-8.9); Red Cell Distribution Width 17.3 % (11.5-14.5); Segmented Neutrophils % 34.4 %; White Blood Count 1.7 K/mcL (4.3-11.1)
[2020-03-26 04:21] LABS: Lymphocytes # 0.6 K/mcL (0.6-4.6)
[2020-03-26] MEDS: Ipratropium 1 PUFF INHALER IH SCH ×6 (04:22→23:24)
[2020-03-26 04:23] LABS: Platelet Count 27 K/mcL (140-400)
[2020-03-26 04:36] LABS: BUN/Creatinine Ratio 18 (6-26); Blood Urea Nitrogen 15 mg/dL (8-23); Calcium 8.7 mg/dL (8.6-10.3); Carbon Dioxide 24 mEq/L (23-29); Chloride 106 mEq/L (98-107); Glucose 147 mg/dL (70-105); Osmolality,Calculated 286 (280-300); Potassium 3.9 mEq/L (3.5-5.1); Sodium 136 mEq/L (136-145); eGFR For African Americans > 60 (> 60); eGFR For Non-African Americans > 60 (> 60)
[2020-03-26 05:09] LABS: Platelet Estimate Marked Decrease (Normal)
[2020-03-26] MEDS ORDERED: Thiamine (B-1) 100 MG in 0.9 % Sodium Chloride 50 ML IVPB ONE (08:38)
[2020-03-26] MEDS: Immune Glob, Gamma (Gammagard) 20 GM/200 ML INFUS..BTL IVC SCH ×2 (08:52→09:38)
[2020-03-26] MEDS: *HR* Amiodarone 200 MG TABLET PO SCH (09:41)
[2020-03-26] MEDS: Ascorbic Acid 500 MG TABLET PO SCH (09:41)
[2020-03-26] MEDS: lisinopriL 20 MG TABLET PO SCH (09:41)
[2020-03-26] MEDS: Cyanocobalamin (B-12) 1,000 MCG TABLET PO SCH (09:41)
[2020-03-26] MEDS: Gabapentin 100 MG CAPSULE PO SCH ×3 (09:41→20:26)
[2020-03-26] MEDS: Cholecalciferol (D-3) 1,000 UNIT (25MCG) TABLET PO SCH (09:41)
[2020-03-26] MEDS: polyethylene glycoL 3350 17 GM POWD.PACK PO SCH (14:54)
[2020-03-27] MEDS: Ipratropium 1 PUFF INHALER IH SCH ×5 (04:29→19:56)
[2020-03-27 04:46] LABS: Eosinophils % 1.3 %; Hemoglobin 10.7 g/dL (11.5-15.4); Mean Corpuscular Volume 93.4 fL (83.0-100.0); Red Cell Distribution Width 17.6 % (11.5-14.5)
[2020-03-27 04:48] LABS: Hematocrit 33.9 % (35.3-44.9); Immature Granulocytes % 5.1 % (0-4); Immature Platelets 5.1 % (1.1-6.1); Mean Corpuscular HGB Conc 31.6 g/dL (31.6-35.5); Mean Corpuscular Hemoglobin 29.5 pg (28.0-33.3); Monocytes # 0.4 K/mcL (0.0-1.3); Neutrophils # 0.4 K/mcL (1.6-8.9); Red Blood Count 3.63 M/mcL (3.82-4.97); Segmented Neutrophils % 27.6 %; White Blood Count 1.6 K/mcL (4.3-11.1)
[2020-03-27 04:53] LABS: Lymphocytes # 0.7 K/mcL (0.6-4.6)
[2020-03-27 04:54] LABS: Platelet Count 34 K/mcL (140-400)
[2020-03-27 05:06] LABS: BUN/Creatinine Ratio 15 (6-26); Blood Urea Nitrogen 12 mg/dL (8-23); Calcium 8.9 mg/dL (8.6-10.3); Carbon Dioxide 24 mEq/L (23-29); Chloride 105 mEq/L (98-107); Glucose 127 mg/dL (70-105); Osmolality,Calculated 283 (280-300); Potassium 4.4 mEq/L (3.5-5.1); Sodium 136 mEq/L (136-145); eGFR For African Americans > 60 (> 60); eGFR For Non-African Americans > 60 (> 60)
[2020-03-27 05:46] LABS: Platelet Estimate Marked Decrease (Normal)
[2020-03-27] MEDS: Insulin LISPRO 300 UNITS/3 ML VIAL SUBQ SCH ×3 (08:38→16:07)
[2020-03-27] MEDS: Immune Glob, Gamma (Gammagard) 20 GM/200 ML INFUS..BTL IVC SCH ×2 (09:01→10:43)
[2020-03-27] MEDS: Cholecalciferol (D-3) 1,000 UNIT (25MCG) TABLET PO SCH (09:02)
[2020-03-27] MEDS: *HR* Amiodarone 200 MG TABLET PO SCH (09:02)
[2020-03-27] MEDS: Gabapentin 100 MG CAPSULE PO SCH ×3 (09:02→20:53)
[2020-03-27] MEDS: Ascorbic Acid 500 MG TABLET PO SCH (09:02)
[2020-03-27] MEDS: Cyanocobalamin (B-12) 1,000 MCG TABLET PO SCH (09:03)
[2020-03-27] MEDS: lisinopriL 20 MG TABLET PO SCH (09:03)
[2020-03-27] MEDS: polyethylene glycoL 3350 17 GM POWD.PACK PO SCH (09:13)
[2020-03-28] MEDS: Ipratropium 1 PUFF INHALER IH SCH ×7 (00:41→23:31)
[2020-03-28 02:28] LABS: Eosinophils % 1.1 %; Red Cell Distribution Width 17.2 % (11.5-14.5)
[2020-03-28 02:30] LABS: Basophils % 0.5 %; Hematocrit 33.5 % (35.3-44.9); Hemoglobin 10.3 g/dL (11.5-15.4); Immature Granulocytes % 3.8 % (0-4); Immature Platelets 6.5 % (1.1-6.1); Lymphocytes % 41.3 %; Mean Corpuscular HGB Conc 30.7 g/dL (31.6-35.5); Mean Corpuscular Hemoglobin 28.7 pg (28.0-33.3); Mean Corpuscular Volume 93.3 fL (83.0-100.0); Mean Platelet Volume 12.7 fL (9.4-12.4); Monocytes % 24.5 %; Neutrophils # 0.5 K/mcL (1.6-8.9); Red Blood Count 3.59 M/mcL (3.82-4.97); Segmented Neutrophils % 28.8 %; White Blood Count 1.8 K/mcL (4.3-11.1)
[2020-03-28 02:51] LABS: BUN/Creatinine Ratio 18 (6-26); Blood Urea Nitrogen 14 mg/dL (8-23); Calcium 8.6 mg/dL (8.6-10.3); Carbon Dioxide 21 mEq/L (23-29); Chloride 104 mEq/L (98-107); Glucose 152 mg/dL (70-105); Osmolality,Calculated 279 (280-300); Sodium 133 mEq/L (136-145); eGFR For African Americans > 60 (> 60); eGFR For Non-African Americans > 60 (> 60)
[2020-03-28 03:16] LABS: Lymphocytes # 0.7 K/mcL (0.6-4.6); Monocytes # 0.4 K/mcL (0.0-1.3); Platelet Count 35 K/mcL (140-400)
[2020-03-28] MEDS: Insulin LISPRO 300 UNITS/3 ML VIAL SUBQ SCH ×3 (09:13→16:26)
[2020-03-28] MEDS: Ascorbic Acid 500 MG TABLET PO SCH (09:36)
[2020-03-28] MEDS: Cyanocobalamin (B-12) 1,000 MCG TABLET PO SCH (09:36)
[2020-03-28] MEDS: Cholecalciferol (D-3) 1,000 UNIT (25MCG) TABLET PO SCH (09:36)
[2020-03-28] MEDS: lisinopriL 20 MG TABLET PO SCH (09:36)
[2020-03-28] MEDS: Immune Glob, Gamma (Gammagard) 20 GM/200 ML INFUS..BTL IVC SCH ×2 (09:36→10:10)
[2020-03-28] MEDS: Gabapentin 100 MG CAPSULE PO SCH ×3 (09:36→21:40)
[2020-03-28] MEDS: *HR* Amiodarone 200 MG TABLET PO SCH (09:37)
[2020-03-28] MEDS: polyethylene glycoL 3350 17 GM POWD.PACK PO SCH (09:37)
[2020-03-29] MEDS: Ipratropium 1 PUFF INHALER IH SCH ×5 (03:33→19:50)
[2020-03-29 06:41] LABS: Mean Corpuscular HGB Conc 31.4 g/dL (31.6-35.5)
[2020-03-29 06:43] LABS: Eosinophils % 0.8 %; Hematocrit 32.2 % (35.3-44.9); Hemoglobin 10.1 g/dL (11.5-15.4); Immature Granulocytes % 2.3 % (0-4); Immature Platelets 5.4 % (1.1-6.1); Lymphocytes # 0.5 K/mcL (0.6-4.6); Lymphocytes % 41.9 %; Mean Corpuscular Hemoglobin 29.4 pg (28.0-33.3); Mean Corpuscular Volume 93.6 fL (83.0-100.0); Mean Platelet Volume 13.8 fL (9.4-12.4); Monocytes # 0.4 K/mcL (0.0-1.3); Monocytes % 34.1 %; Neutrophils # 0.3 K/mcL (1.6-8.9); Red Blood Count 3.44 M/mcL (3.82-4.97); Red Cell Distribution Width 17.2 % (11.5-14.5); Segmented Neutrophils % 20.9 %; White Blood Count 1.3 K/mcL (4.3-11.1)
[2020-03-29 06:53] LABS: Platelet Count 33 K/mcL (140-400)
[2020-03-29 07:00] LABS: BUN/Creatinine Ratio 18 (6-26); Blood Urea Nitrogen 14 mg/dL (8-23); Calcium 8.8 mg/dL (8.6-10.3); Carbon Dioxide 25 mEq/L (23-29); Chloride 105 mEq/L (98-107); Glucose 135 mg/dL (70-105); Osmolality,Calculated 279 (280-300); Potassium 4.5 mEq/L (3.5-5.1); Sodium 133 mEq/L (136-145); eGFR For African Americans > 60 (> 60); eGFR For Non-African Americans > 60 (> 60)
[2020-03-29 07:14] LABS: Platelet Estimate Marked Decrease (Normal)
[2020-03-29] MEDS: polyethylene glycoL 3350 17 GM POWD.PACK PO SCH (08:16)
[2020-03-29] MEDS: Cholecalciferol (D-3) 1,000 UNIT (25MCG) TABLET PO SCH (08:17)
[2020-03-29] MEDS: *HR* Amiodarone 200 MG TABLET PO SCH (08:17)
[2020-03-29] MEDS: Gabapentin 100 MG CAPSULE PO SCH ×2 (08:17→15:41)
[2020-03-29] MEDS: Ascorbic Acid 500 MG TABLET PO SCH (08:17)
[2020-03-29] MEDS: lisinopriL 20 MG TABLET PO SCH (08:17)
[2020-03-29] MEDS: Cyanocobalamin (B-12) 1,000 MCG TABLET PO SCH (08:17)
[2020-03-29] MEDS: Immune Glob, Gamma (Gammagard) 20 GM/200 ML INFUS..BTL IVC SCH ×2 (08:18→11:05)
[2020-03-29] MEDS: Insulin LISPRO 300 UNITS/3 ML VIAL SUBQ SCH ×2 (08:27→12:22)
[2020-03-29 11:14] VITALS: BP 107/71
== END 2020-03-29 18:26 | DRG 95 ==
LOC: 3BNU 11:51 → EMEROOARM 11:51 → SUATTDRO 15:02 → 3BNU 16:41
PROVIDERS: ADMIT Internal Medicine; ATTEND Internal Medicine